=== PATIENT | female | born 1980 | race Caucasian/White ===

== ENCOUNTER → 2017-12-16 09:12 | Outpatient (CLI) | payer OTHER, SELFPAY ==
[2017-12-16 11:25] LABS: Microalbumin,Random Urine < 5.0 mg/L (NO RANGE EST.)
[2017-12-16 11:32] LABS: Hemoglobin A1c 7.1 % (4.2-6.3)
[2017-12-16 11:37] LABS: AST(SGOT) 25 U/L (15-37); Alanine Aminotransfer ALT/SGPT 30 U/L (13-56); Albumin, Serum 3.6 g/dL (3.2-5.0); Alkaline Phosphatase 62 U/L (45-117); Anion Gap 8 (5-15); BUN 8 mg/dL (7-18); BUN/Creat Ratio 10.9 RATIO (10-20); Calcium,Total 8.4 mg/dL (8.5-10.1); Chloride 109 mmol/L (98-107); Cholesterol 159 mg/dL (200); Creatinine, Serum 0.73 mg/dL (0.55-1.02); EST Glomerular Filtration Rate 95 mL/min (>60); Est Glom Filt Rate - Afr Amer 115 mL/min (>60); Follicle Stimulating Hormone 4.1 mIU/mL; Globulin 3.5 g/dL (2.2-4.2); Glucose 90 mg/dL (74-106); High Density Lipoprotein 58 mg/dL; Luteinizing Hormone 4.3 mIU/mL; Protein, Total 7.1 g/dL (6.4-8.2); Sodium Level 142 mmol/L (136-145); Thyroid Stim Hormone (TSH) 2.16 uIU/mL (0.358-3.74); Triglycerides 44 mg/dL; Very Low Density Lipoprotein 9 mg/dL (5-40)
[2017-12-18 16:16] LABS: Estrogen, Total, Serum 331 pg/mL (.)
== END ==
LOC: LAB 09:19
PROVIDERS: Visit Provider Nurse Practitioner
DX: E10.9 Type 1 diabetes mellitus without complications (principal); E89.40 Asymptomatic postprocedural ovarian failure; Z90.710 Acquired absence of both cervix and uterus
CPT/HCPCS: 36415; 80053; 80061; 82043; 82570; 82672; 83001; 83002; 83036; 84443

== ENCOUNTER 2018-03-12 09:58 | Observation (INO) | payer OTHER, SELFPAY ==
[2018-03-12] VITALS (9 sets, daily range): BP systolic 97–125; BP diastolic 60–74; PULSE 65–101; RESP 14–16; TEMP 36.6–36.9; O2SAT 98–100; BMI 29.5
--- NOTE | 2018-03-12 10:31 | CT_ITS ---
STUDY: CT PELVIS WITH CONTRAST REASON FOR EXAM: Female, 37 years old. Perianal abscess. Pain in the left buttock. RADIATION DOSAGE (If Supplied By Facility): CTDIvol = ( 28.21 ) mGy, DLP = ( 1040.96 ) mGycm TECHNIQUE: Transaxial imaging of the pelvis was performed without oral contrast. 100 ml of Isovue 300 contrast was administered intravenously. Individualized dose optimization techniques were used for this CT. COMPARISON: None. FINDINGS: Normal urinary bladder. There is a 2.2 cm x 1.6 cm hypodensity with thickened ziegler along the medial aspect of the left buttock adjacent to the left side of the anus. Mild increased markings in the surrounding subcutaneous tissues. There is a 5 cm x 4 cm x 4.6 cm cyst in the right cul-de-sac suggestive of a right ovarian cyst. The patient is status post hysterectomy. Normal visualized small intestine. Normal visualized colon. There is no pelvic fluid. There is no pelvic lymphadenopathy or mass lesion. Normal visualized pelvic arteries. Normal abdominal wall. Normal osseous structures. CT/Pelvis WITH IV Contrast IMPRESSION: 5 cm x 4 cm x 4.6 m cyst in the right ovary. 2.2 cm x 1.6 cm hypodensity with thickened zeigler along the medial aspect of the left buttock adjacent to the anus. Electronically Signed: Lico Cho MD at 11:32 EDT Tel [phone], Service support ,
[2018-03-12 11:12] LABS: Absolute Lymphocyte Count 1.89 X10^3/ul (0.83-4.51); Absolute Neutrophil Count 7.2 X10^3/uL (2.0-7.7); Basophil# 0.04 X10^3/uL; Basophil% 0.4 % (0-1); Eosinophil# 0.11 X10^3/uL; Eosinophils% 1.1 % (0-5); Hematocrit 37.8 % (37-47); Hemoglobin 12.8 g/dl (12.0-15.0); Lymphocyte # 1.89 X10^3/ul (4.0); Mean Corp Hgb Conc 33.9 g/gl (32-36); Mean Corpuscular Hgb 30.1 pg (27.0-32.0); Mean Corpuscular Volume 88.9 fL (81-99); Mean Platelet Vol. 10.7 fl (6.2-12.0); Monocyte# 0.66 X10^3/uL; Monocyte% 6.6 % (0-10); Neutrophil # 7.24 X10^3/uL (2.7-7.7); Neutrophil % 72.7 % (47-70); Platelet Count 286 K/mm3 (150-450); RBC Distribution Width CV 12.8 % (11.6-14.6); RBC Distribution Width SD 41.6 fl (35.1-43.9); Red Blood Count 4.25 M/mm3 (4.2-5.4)
[2018-03-12 11:13] LABS: Anion Gap 8 (5-15); BUN 9 mg/dL (7-18); BUN/Creat Ratio 11.4 RATIO (10-20); Calcium,Total 8.4 mg/dL (8.5-10.1); Chloride 104 mmol/L (98-107); Creatinine, Serum 0.79 mg/dL (0.55-1.02); EST Glomerular Filtration Rate 88 mL/min (>60); Est Glom Filt Rate - Afr Amer 106 mL/min (>60); Estimated Creatinine Clearance 70.71 ml/min; Glucose 242 mg/dL (74-106); Potassium 3.9 mmol/L (3.5-5.1); Sodium Level 140 mmol/L (136-145)
[2018-03-12 11:16] LABS: Differential Indicated SCAN CRITERIA MET; POSITIVE COUNT NO; POSITIVE DIFFERENTIAL NO; POSITIVE MORPHOLOGY YES
--- NOTE | 2018-03-12 11:16 | EKG12_ITS ---
Test Reason : PRE-OP Blood Pressure : / mmHG Vent. Rate : 074 BPM Atrial Rate : 074 BPM P-R Int : 142 ms QRS Dur : 072 ms QT Int : 398 ms P-R-T Axes : 041 056 032 degrees QTc Int : 441 ms Normal sinus rhythm Normal ECG When compared with ECG of 18-OCT-2015 13:44, No significant change was found Confirmed by GIDEON DOVER, SHANE ([id number]), news videotape editor ANSLEY LEIVA ([id number]) on 03/20/2018 2:45:56 PM Referred By: Marlon Garsia Confirmed By:SHANE MENESES MD
--- NOTE | 2018-03-12 11:23 | PCM.PN.BLA ---
Progress Note Intake Vital Signs 03/12/18 Height 5 ft 03/12/18 Weight: 155 lb 03/12/18 Body Mass Index (BMI) 30.2 03/12/18 Blood Pressure 116/75 03/12/18 Blood Pressure Location Rt brachial 03/12/18 Blood Pressure Position Standing 03/12/18 Respiratory Rate 14 03/12/18 Pulse Rate 74 03/12/18 Pulse Source Monitor 03/12/18 Temperature 98.5 F 03/12/18 Temperature Source Oral 03/12/18 Pulse Ox 99 03/12/18 Oxygen Delivery room air Intake Visit Reasons: Wandy-anal abscess- RC Is patient in pain?: Yes (buttock) Pain scale (1-10): 8 Allergies gabapentin [From Neurontin] Allergy (Verified 03/12/18 09:22) Other Medications insulin lispro (U-100) 100 unit/mL subcutaneous solution See Label Instructions SC QDAY #60 ml 01/15/18 [Rx Confirmed 03/12/18] amoxicillin 875 mg-potassium clavulanate 125 mg tablet 1 tab PO BID 03/12/18 [History Confirmed 03/12/18] flaxseed oil 1,000 mg capsule 1,000 mg PO DAILY 03/12/18 [History Confirmed 03/12/18] lactobacillus combination no.8 3 billion cell capsule 3,000 mmu cells PO DAILY 03/12/18 [History Confirmed 03/12/18] PFSH Medical History Perirectal abscess (Acute) Diabetes type I (Acute) Surgical History Hx of hysterectomy (Acute) r ring a1 jerald release (Acute) History of carpal tunnel surgery (Acute) H/O: (Acute) Family History Father Hypertension Arthritis Grandfather Cancer Arthritis Grandmother Cancer Arthritis Brother Diabetes Social History Smoking Status: Never smoker second hand exposure: No alcohol intake: current alcohol intake frequency: a few times a month substance use type: does not use caffeine: Yes what type of physical activity do you participate in: none frequency: does not exercise seatbelt use: always HPI: TAWNYA HAWTHORNE, is a 37 F who I am seeing for a painful lump on the left buttock. Patient noted a burning sensation of the left buttock last Friday. Patient states she thought it was her pants rubbing against her bottom wrong. Patient notes on Friday the discomfort had increased. Her took a look and did not see any redness or lump. Patient was evaluated by her PCP on last . She was placed on antibiotics which helped over the weekend. She noted the pain was less. On Friday, patient then noted the discomfort returning. She noted the last two days the pain had worsened/increased. She notes the pain is approximately an 8 out of 10 on the pain scale. Patient is unable to lay supine or sit due to the discomfort. She denies fever, nausea, vomiting. She notes normal bowel movements without melena, bright red blood per rectum. She notes slight incontinence with urinary which started yesterday. Patient is a type I diabetic with an insulin pump. Patient noted her blood sugar spiked to 300 last night. Per patient her blood sugar was 120. She notes she has not ate or drank anything today. Patient is requesting to monitor her own insulin pump. She denies previous cardiac history. She denies complications with anesthesia. ROS General General: No weight change, appetite, fatigue, colon cancer, breast cancer or weakness HEENT HEENT: No difficulty swallowing, eye injury, eye surgery, swollen glands or hoarseness Endo Endocrine: Yes diabetes mellitus; no thyroid disease, thyroid cancer, Hair loss, heat intolerance or cold intolerance Skin Skin: No rash or changing moles Musc Musculoskeletal: No back problems, arthritis, rheumatoid arthritis, gout or joint pain Cardio Cardiovascular: No murmur, pacemaker, heart disease, atrial fibrillation, high blood pressure, heart attack, heart stent, palpitations, shortness of breat with exertion or chest pain Psych Psychiatric: No depression, anxiety or hearing voices Resp Respiratory: No shortness of breath, No sleep apnea, No cough, No COPD, No asthma, No emphysema, No wheezing Gastro Gastrointestinal: No abdominal pain, No nausea or vomiting, No diarrhea, No constipation, No blood in stool, No acid reflux, No hemorrhoids, No ulcers, No gallbladder problem, No black,tarry stools Fred Hematologic: No blood thinners, No blood disorders, No bleeding, No anemia, No blood clots Neuro Neurologic: No system reviewed and no additional complaints, except as docu, No as per HPI, No abnormal walking, No abnormal hearing, No abnormal movements, No abnormal speech, No behavioral changes, No burning sensations, No confusion, No seizure-like activity, No unsteadiness, No dizziness, No localized weakness, No frequent falls, No headache(s), No lack of coordination, No loss of vision, No memory loss, No numbness, No other visual disturbances, No radiating pain, No restless legs, No sensory deficit, No fainting, No tingling, No tremor(s), No weakness, No other Exam Const General: cooperative, healthy appearing, no acute distress, other (Uncomfortable with sitting or laying supine) HENMT Head: normal to inspection Eyes General: appearance normal, both eyes and all related structures Neck Neck: normal visual inspection Neck mass: No Resp Effort & Inspection: normal respiratory effort Auscultation: clear to auscultation bilaterally Cardio Rate: regular rate Heart Sounds: no murmurs GI Inspection: normal to inspection Palpation: soft Auscultation: normal bowel sounds Other: Right lateral thigh- diabetic pump noted Left buttock- adjacent to the anus is a 3-4 cm fluctuant region with faint erythema Skin General: no rashes or lesions noted Neuro General: no focal motor deficits, CN's II-XI intact bilaterally Extrem General: normal to inspection Psych Appearance: grossly normal Affect: normal affect Assessment & Plan Problems 1. Perianal abscess K61.[address] Garsia has also evaluated this patient. Due to the patient's history of diabetes, we are recommending direct admission. We will obtain CBC, BMP, blood cultures and STAT pelvic CT. Dr. Garsia will plan to perform an incision and drainage or wandy-anal abscess. Patient prefers to monitor her own insulin pump. Procedure details, risks and benefits have been explained. Patient has had the opportunity to ask and have questions answered. Patient verbally understands and agrees with the plan. Continue NPO. Code Visit Inpatient E&M: 37864 Subs Hosp L1 - No Charge
[2018-03-12 11:48] LABS: Hemoglobin A1c 7.6 % (4.2-6.3)
[2018-03-12] MEDS: 0.9% Normal Saline 1,000 ML 30 ML IV (13:32)
[2018-03-12] MEDS: Piperacil/Tazobactam 3.375 GM/50 ML ML IV ×2 (13:32→21:25)
--- NOTE | 2018-03-12 15:44 | PCM.DC.GS ---
Discharge Diet: Light diet - advance as tolerated - if you have questions about your diet instructions, please talk to you doctor. Discharge Activity: May Not Drive - for 1 week or while taking narcotic pain medicine. May shower in (days): 1 Lifting Restrictions: 10 pounds Call your doctor if your incision/area has: Continuous Slow Oozing, Sudden Increased Bleeding, Increased Pain/ Swelling, Increased Redness, Foul Smelling Discharge Call your doctor if you observe: Fever of 101 or Higher Suture Line Care: Avoid Pulling/Pushing, Avoid Pinching/Bending Additional Dressing/Incision Instructions:: Please remove the gauze wick 2 inch daily and cleanse area with Q-tip and peroxide. You may shower or tub bathe starting tomorrow Friday, March 13. Careful wound inspection after any bowel movement. Apply dry gauze or similar for wound drainage. Allergies/Adverse Reactions: Allergies gabapentin [From Neurontin] Allergy (Verified 03/12/18 09:22) Other Medications to take at Discharge insulin lispro (U-100) 100 unit/mL subcutaneous solution See Label Instructions SC QDAY #60 ml 01/15/18 Amoxicillin/Potassium Clav [Amox-Clav 875-125 mg Tablet] 1 tab PO BID #6 tab 03/12/18 Hydrocodone Bitart/Apap 5-325 [[place] 5MG-325MG] 1 tablet PO Q6H PRN PRN 3 Days #10 tablet 03/12/18 Magnesium Hydroxide [Milk Of Magnesia] 30 ml PO DAILY PRN PRN udc 03/12/18 Ondansetron [Zofran] 4 mg IV Q8H PRN PRN vial 03/12/18 Piperacil/Tazobactam [Zosyn] 3.375 gm IV Q8 ml 03/12/18 flaxseed oil 1,000 mg capsule 1,000 mg PO DAILY 03/12/18 lactobacillus combination no.8 3 billion cell capsule 3,000 mmu cells PO DAILY 03/12/18 The following prescriptions were given: Hydrocodone Bitart/Apap 5-325 [[place] 5MG-325MG] 1 tablet PO Q6H PRN PRN 3 Days #10 tablet PRN Reason: Pain Amoxicillin/Potassium Clav [Amox-Clav 875-125 mg Tablet] 1 tab PO BID #6 tab Primary Care Physician: Meenu Chua [Primary Care Provider] - Test Results: Test results from this visit will be discussed in further detail at your follow-up appointment, if applicable. Please Follow Up With: Marlon Garsia MD - [phone] When: Call to make an appointment to be seen on Friday please
[2018-03-12] MEDS: Bupivacaine Mpf 0.5% 30 ML VIAL (16:13)
--- NOTE | 2018-03-12 16:14 | PCM.OPRPT ---
Problem List (1) Perianal abscess Status: Acute Report of Operation Date of Procedure: 03/12/18 Pre-Operative Diagnosis: Left perianal abscess Post-Operative Diagnosis: Same Surgery/Procedure Performed:: Incision and drainage left perianal abscess Description of Surgical Findings:: Timeout and informed consent was obtained. 37-year-old female on the therapeutic Zosyn was taken to the operating room. CT scan suggested a left perianal abscess. She underwent general ventricular-based anesthesia. She was placed prone on the table. The left perianal area was sterilely prepped draped. I used an 18-gauge needle to drain 4 cc of pus. That is sent for Gram stain culture and sensitivity. A 3 cm long incision was made left lateral curvilinear with the anus. Sharp dissection again carried down through the subcutaneous tissue into the abscess pocket. Several loculations disrupted. The pocket was then irrigated. 1/2 inch Nu Gauze wick was placed as a drain. Cover dressings were applied. She tolerated the procedure well. Blood loss was minimal. Specimen only includes specimen for culture. Drains include the Nu Gauze. Marlon Garsia M.D., F.A.C.S. Type of Anesthesia:: General Anesthesiologist: Jose Carlos Womack
[2018-03-12 16:45] LABS: Bedside Glucose 94 mg/dL (70-110)
[2018-03-12] MEDS: Acetaminophen 325 MG Tablet 650 MG PO (17:55)
--- NOTE | 2018-03-12 21:41 | NURSING ---
Patient checked sugar with own equipment @ 1900. BS 162. She used 7.5u on her own pump to cover. Pt will recheck blood sugar prior to bed. Instructed to let staff know reading.
--- NOTE | 2018-03-13 | NURSING ---
Pt took QHS blood sugar with own equipment. Blood sugar 82.
[2018-03-13] MEDS: HYDROcodone Bitartrate/Apap 5/325 Tablet PO ×2 (02:46→09:18)
[2018-03-13 02:53] VITALS: BP 95/54; PULSE 86; RESP 16; TEMP 37.3; O2SAT 98
[2018-03-13] MEDS: Piperacil/Tazobactam 3.375 GM/50 ML ML IV (05:10)
--- NOTE | 2018-03-13 06:05 | PN.SURG_ITS ---
Patient Problems: Active and Suspected Problems (Last Reviewed 03/12/18 @ 09:24 by Tamela Keane) Perianal abscess (Acute) Subjective: Pt feeling improved - Physical Exam Abdomen: - - left perianal area softer, less erythema Vital Signs Temp Pulse Resp BP Pulse Ox 99.1 F 86 16 95/54 L 98 03/13/18 02:53 03/13/18 02:53 03/13/18 02:53 03/13/18 02:53 03/13/18 02:53 Oxygen Delivery Method Room Air Weight: 151 lb 0.266 oz Body Mass Index (BMI) 29.5 Finger Stick Blood Glucose 94 Intake and Output for Last 24 Hours 03/11/18 03/12/18 03/13/18 23:59 23:59 23:59 Intake Total 816 / 816 2730 / 2730 Output Total 1000 / 1000 Balance 816 / 816 1730 / 1730 Laboratory Tests Past 24 Hrs 03/12/18 03/12/18 03/12/18 10:40 10:40 11:20 WBC 10.0 RBC 4.25 Hgb 12.8 Hct 37.8 MCV 88.9 MCH 30.1 MCHC 33.9 RDW 12.8 RDW Differential 41.6 Plt Count 286 MPV 10.7 Immature Gran % (Auto) 0.200 Neut % (Auto) 72.7 H Lymph % (Auto) 19.0 [place] % (Auto) 6.6 Eos % (Auto) 1.1 Baso % (Auto) 0.4 Absolute Neuts (auto) 7.2 Absolute Lymphs (auto) 1.89 Total Counted Not Reportable Sodium 140 Potassium 3.9 Chloride 104 Carbon Dioxide 28.0 Anion Gap 8 BUN 9 Creatinine 0.79 Estim Creat Clear Calc 70.71 Est GFR (MDRD) Af Amer 106 Est GFR (MDRD) Non-Af 88 BUN/Creatinine Ratio 11.4 Glucose 242 H Hemoglobin A1c 7.6 H Calcium 8.4 L POC Glucose 03/12/18 16:37 POC Glucose 94 Medical Necessity - Tobacco Use Smoking Status: Never smoker Assessment/Plan All Active Problems (Last Reviewed 03/12/18 @ 09:24 by Tamela Keane) Perianal abscess (Acute) Perirectal abscess (Acute) Hx of hysterectomy (Acute) r ring a1 jerald release (Acute) History of carpal tunnel surgery (Acute) H/O: (Acute) Diabetes type I (Acute) Wick advanced. Redressed. Ready for discharge when current zosyn complete
[2018-03-13 09:21] VITALS: BP 95/62; PULSE 73; RESP 16; TEMP 36.7; O2SAT 100
== END 2018-03-13 09:25 | disposition home or self-care (01) ==
PROVIDERS: Anesthesiology; Physician Assistant; Admitting Provider Surgery; Family Provider Family Medicine; PCP Family Medicine; Visit Provider Surgery
PROC: (CPT 46040; principal; 2018-03-12 07:15)
DX: K61.1 Rectal abscess (principal); E10.9 Type 1 diabetes mellitus without complications; Z79.899 Other long term (current) drug therapy; Z79.4 Long term (current) use of insulin; Z96.41 Presence of insulin pump (external) (internal); R32 Unspecified urinary incontinence
CPT/HCPCS: 00902; 46050; 36415; 72193; 80048; 82962; 83036; 85025; 87040; 87070; 87075; 87077; 87186; 87205; 93005; 96365; 96366; 99218; J7030; J7040; Q9967; A4216; G0378; G0379; J2405

== ENCOUNTER 2019-02-02 11:34 | Emergency (ER) | payer OTHER, SELFPAY ==
[2019-02-02 11:35] VITALS: BP 134/78; PULSE 79; RESP 16; TEMP 36.4; O2SAT 100; BMI 29.2
[2019-02-02 11:56] LABS: Bedside Glucose 127 mg/dL (70-110)
--- NOTE | 2019-02-02 12:15 | EKG12_ITS ---
Test Reason : DIZZINESS Blood Pressure : / mmHG Vent. Rate : 071 BPM Atrial Rate : 071 BPM P-R Int : 138 ms QRS Dur : 072 ms QT Int : 394 ms P-R-T Axes : 032 053 026 degrees QTc Int : 428 ms Normal sinus rhythm Normal ECG Confirmed by PETRONA GUZMAN ([id number]), editor book ZAIRE PEDROZA ([id number]) on 02/04/2019 2:31:18 PM Referred By: ARMANDO Confirmed By:PETRONA GUZMAN
[2019-02-02] MEDS: 0.9% Normal Saline 1,000 ML 1000 ML IV (12:31)
[2019-02-02 12:42] LABS: Absolute Lymphocyte Count 1.73 X10^3/uL (0.83-4.51); Basophil# 0.08 X10^3/uL; Basophil% 0.8 % (0-1); Eosinophil# 0.06 X10^3/uL; Eosinophils% 0.6 % (0-5); Hematocrit 42.7 % (37-47); Hemoglobin 14.5 g/dL (12.0-15.0); Lymphocyte # 1.73 X10^3/ul (4.0); Lymphocyte % 18.1 % (19-41); Mean Corpuscular Hgb 30.9 pg (27.0-32.0); Mean Platelet Vol. 11.5 fl (6.2-12.0); Monocyte# 0.59 X10^3/uL; Monocyte% 6.2 % (0-10); NRBC Flagged by Analyzer 0 % (0-5); Neutrophil # 7.04 X10^3/uL (2.7-7.7); Neutrophil % 73.9 % (47-70); Platelet Count 220 K/mm3 (150-450); RBC Distribution Width CV 12.3 % (11.6-14.6); RBC Distribution Width SD 40.6 fl (35.1-43.9); Red Blood Count 4.69 M/mm3 (4.2-5.4); White Blood Count 9.5 K/mm3 (4.4-11.0)
[2019-02-02 12:48] LABS: AST(SGOT) 16 U/L (15-37); Alanine Aminotransfer ALT/SGPT 26 U/L (13-56); Albumin, Serum 3.8 g/dL (3.2-5.0); Alkaline Phosphatase 74 U/L (45-117); Anion Gap 3 (5-15); BUN 11 mg/dL (7-18); BUN/Creat Ratio 13.1 RATIO (10-20); Bilirubin, Direct 0.13 mg/dL (0.00-0.30); Calcium,Total 8.7 mg/dL (8.5-10.1); Chloride 106 mmol/L (98-107); Creatinine, Serum 0.84 mg/dL (0.55-1.02); EST Glomerular Filtration Rate 81 mL/min (>60); Est Glom Filt Rate - Afr Amer 98 mL/min (>60); Estimated Creatinine Clearance 65.87 ml/min; Globulin 3.7 g/dL (2.2-4.2); Glucose 131 mg/dL (74-106); Protein, Total 7.5 g/dL (6.4-8.2); Sodium Level 139 mmol/L (136-145)
[2019-02-02 13:02] VITALS: BP 110/71; BP 117/73; BP 129/81; PULSE 72; PULSE 77; PULSE 78
[2019-02-02 13:51] VITALS: BP 106/59; PULSE 88; RESP 16; O2SAT 97
--- NOTE | 2019-02-02 14:58 | ED.RN ---
URINE COLLECTION CANCELLED VERBALLY BY DR LARIOS AFTER VISUALIZING URINE SPECIMEN IN CUP.
--- NOTE | 2019-02-02 15:01 | ED.DCSUM_ITS ---
- ER Visit Summary Date of Service: 02/02/19 Chief Complaint: Dizziness and elevated blood sugar History of Present Illness: The patient is a 38 F history of type 1 insulin- dependent diabetes with insulin pump. Patient states she just felt she got up this morning lightheaded dizzy. Denies any headache. No trouble moving arms or legs. Elevated blood sugar at 320 early today. States she is lying down and some mild abdominal crampiness but denies any vomiting, diarrhea or melena. She is had no recent head injury. No chest pain or shortness of breath. No fever. No dysuria. Physical Examination: Female no acute distress. Vital signs are stable. Afebrile. She does not look septic or toxic. HEENT exam normal. Moist wheeze members. No facial droop. Normal speech. Pupils are unreactive light. Neck nontender. Lungs clear to auscultation bilaterally. Heart regular rhythm no murmur. Abdomen is soft and nontender. Normal bowel sounds no peritoneal signs. Extremities moves all 4. Calves nontender no edema. Equal symmetrical health concierge strength. Dorsi plantarflexion intact. Skin unremarkable. Neurologically she is awake and alert with no focal motor or sensory deficits. NIH score is 0. Test Results: CBC normal white count of 9. Hemoglobin 14. Chemistries normal normal BUN and creatinine. Glucose of 131. Liver enzymes normal. UA was initially ordered she did not urinate for a while I evaluated it is completely clear I am canceling the UA. She is had no urinary symptoms. Ketones are negative. EKG sinus rhythm rate is 71 with no acute signs of CT, ischemia or dysrhythmia. Emergency Department Course and Treatment: Diabetic female feeling lightheaded. Exam is normal. She is not in DKA. She received a liter of fluid here. Gave her self insulin to her insulin pump. On repeat exam at 1500 she is doing well. Feels comfortable being discharged home. Treatment Plan: Monitor blood sugars closely. Follow-up as needed. Return if worse. Disposition: Discharge Impression: Transient hyperglycemia Dizziness of uncertain etiology History of insulin-dependent diabetes This note was generated with [employer] dictation software. It may contain incorrect words, spelling, and punctuation that were not noted in review of the chart prior to signing ED Disposition - Plan for ED Patient: Referrals: Meenu Chua [Primary Care Provider] -
--- NOTE | 2019-02-02 15:05 | ED.DEP ---
ED Disposition - Plan for ED Patient: Disposition: Home or Assisted Living Instructions: DIZZINESS, Unk Cause Referrals: Meenu Chua [Primary Care Provider] - 3-5 Days if not improving Additional Instructions: Friday fluids and rest. Watch your blood sugars closely. Up with your doctor if not improving.
== END 2019-02-02 15:14 | disposition home or self-care (01) ==
PROVIDERS: Emergency Provider Emergency Medicine; Family Provider Family Medicine; PCP Family Medicine
DX: E10.65 Type 1 diabetes mellitus with hyperglycemia (principal); R42 Dizziness and giddiness; Z79.4 Long term (current) use of insulin
CPT/HCPCS: 80048; 80076; 82009; 82962; 85025; 93005; 96360; 96361; 99285; J7030; A4216

== ENCOUNTER → 2019-11-29 | Outpatient (CLI) | payer MEDICAID, SELFPAY ==
[2019-11-29 13:14] VITALS: BMI 29.4
[2019-11-29 15:33] LABS: AST(SGOT) 27 U/L (15-37); Alanine Aminotransfer ALT/SGPT 45 U/L (13-56); Albumin, Serum 3.8 g/dL (3.2-5.0); Alkaline Phosphatase 83 U/L (45-117); BUN 11 mg/dL (7-18); BUN/Creat Ratio 12.9 RATIO (10-20); Calcium,Total 9.2 mg/dL (8.5-10.1); Cholesterol 218 mg/dL (200); Creatinine, Serum 0.85 mg/dL (0.55-1.02); EST Glomerular Filtration Rate 79 mL/min (>60); Est Glom Filt Rate - Afr Amer 96 mL/min (>60); Globulin 3.9 g/dL (2.2-4.2); Glucose 113 mg/dL (74-106); Protein, Total 7.7 g/dL (6.4-8.2); Triglycerides 44 mg/dL
[2019-11-29 15:34] LABS: Anion Gap 5 (5-15); Chloride 108 mmol/L (98-107); Follicle Stimulating Hormone 2.3 mIU/mL; High Density Lipoprotein 86 mg/dL; Sodium Level 141 mmol/L (136-145); T4 Free Direct 0.87 ng/dL (0.76-1.46); Thyroid Stim Hormone (TSH) 3.02 uIU/mL (0.358-3.74); Very Low Density Lipoprotein 9 mg/dL (5-40)
[2019-11-29 17:36] LABS: Creatinine, Urine (random) < 13.00 mg/dL (NO RANGE EST.); Microalbumin,Random Urine < 5.0 mg/L (NO RANGE EST.)
== END | disposition home or self-care (01) ==
LOC: BIMLAB 13:47
PROVIDERS: Internal Medicine Endocrinology, Diabetes & Metabolism; PCP Family Medicine
DX: E10.9 Type 1 diabetes mellitus without complications (principal); N91.2 Amenorrhea, unspecified
CPT/HCPCS: 36415; 80053; 80061; 82043; 82570; 83001; 84439; 84443

== ENCOUNTER 2020-08-18 20:57 | Emergency (ER) | payer MEDICAID, SELFPAY ==
[2020-07-17 16:29] VITALS: BMI 30.7
[2020-08-18 20:58] VITALS: BP 140/95; PULSE 72; RESP 16; TEMP 36.6; O2SAT 100; BMI 33.3
--- NOTE | 2020-08-18 21:08 | CT_ITS ---
STUDY: CT ABDOMEN AND PELVIS WITHOUT CONTRAST REASON FOR EXAM: Female, 40 years old. Kidney Stone RADIATION DOSAGE (If Supplied By Facility): CTDIvol = ( 7.80 ) mGy, DLP = ( 370.11 ) mGycm TECHNIQUE: Transaxial images were obtained from the dome of the diaphragm to the symphysis pubis without oral contrast, and without intravenous contrast. Sagittal and coronal images were reconstructed. Individualized dose optimization techniques were used for this CT. COMPARISON: None. FINDINGS: Lung bases are clear. Heart size is normal. The liver is unremarkable. The gallbladder is unremarkable. The spleen and pancreas are unremarkable. The adrenal glands are normal. Trace right hydronephrosis. Mild left hydronephrosis. No renal calculi. Ureters are normal in course and caliber. No ureteral stones. The aorta is normal in caliber. There is no free fluid, free air or organized collection. No bowel obstruction or inflammatory change. Normal appendix. Urinary bladder is unremarkable. Normal abdominal wall. Normal osseous structures. CT/Abdomen/Pelvis without Cont IMPRESSION: Mild bilateral hydronephrosis with no evidence of obstructing stone. Consider small, nonopaque or passed stones. Electronically Signed: Adrianna Boles MD at 21:56 EST Tel , Service support ,
--- NOTE | 2020-08-18 21:09 | ED.DCSUM_ITS ---
History of Present Illness Chief Complaint: Flank Pain Informant: Patient Onset: Days - 3 days ago Context: Sudden Onset Timing: Continuous - Pain, Waxes and wanes Quality: Pain Location: Right flank radiating to groin Current Severity: Moderate Maximum Severity: Severe Worsened by: Nothing Relieved by: Nothing Associated Symptoms: Initially urgency Narrative: Is a 40-year-old type I diabetic since the age of 13 who presents with abrupt onset of right flank pain that radiates anteriorly. Initially she had urgency. She denies dysuria or hematuria. She states she has not been in the emergency department for years for kidney stone. She is status post hysterectomy. She denies fever but reported chills when she felt nauseous. She has not vomited. She denies diarrhea. There is no history of trauma. There is no rash. Prior similar symptoms: Yes Recent Illness/Hospitalization: No - Past Medical History (1) Diabetes type I Status: Acute Comment: Dx : age 13 Last exacerbation : DKA : never Hypoglycemic episode : never ER visit : never (2) Presence of insulin pump Status: Chronic Past Medical History - Allergies and Home Meds Allergies/Adverse Reactions: Allergies gabapentin [From Neurontin] Allergy (Verified 08/18/20 21:00) Other Primary Care Physician: Meenu Chua MD [Primary Care Provider] - Surgical History: hysterectomy Lives: Alone Smoking Status: Never smoker Alcohol: None Drugs: None Review of Systems General: Reports: Chills. Denies: Fever, Malaise, Subjective Eyes: Denies: Visual changes - bilaterally ENT: Denies: Rhinorrhea, Sore throat Cardiovascular: Denies: Chest pain, Palpitations Respiratory: Denies: Dyspnea, Cough, Dyspnea on exertion Gastrointestinal: Reports: Abdominal pain, Nausea. Denies: Vomiting, Diarrhea, Melena, Hematochezia Genitourinary: Reports: - - Initially urgency. Denies: Dysuria, Hematuria, Frequency Musculoskeletal: Reports: Back pain. Denies: Myalgias, Arthralgias, Neck pain, Swelling, Extremity Pain, -, - Skin: Denies: Rash, Wounds Neurological: Denies: Headache, Weakness Endocrine: Denies: Polyuria, Polydipsia Hematologic: Denies: Easy bruising, Easy bleeding Physical Exam Vital Signs/Narrative: Vital Signs Temp Pulse Resp BP Pulse Ox 08/18/20 20:58 98 F 72 16 140/95 H 100 Inital Vital Signs reviewed: Yes General: Well nourished, Well developed, Obese, No Acute Distress Head: Normocephalic, Atraumatic Eyes: Perrl, EOMI ENT: Moist mucous membranes, No rhinorrhea Neck: Supple, Nontender, No lymphadenopathy, No JVD Cardiovascular: Regular rate, Regular rhythm, No murmurs, Normal S1, Normal S2 Respiratory: No distress, CTA bilaterally, Chest nontender Abdomen: Soft, Nontender, Nondistended, Normal bowel sounds Back: Nontender, Normal Inspection, CVA tenderness - Right side only Extremities: Nontender, No edema Skin: Normal color, No rash Neurological: Alert, Oriented x3, Cranial nerves II-XII grossly intact, Normal Strength, Normal Sensation Psychological: Normal affect, Normal Mood Diagnostic/Tx/Re-eval Impressions Abdomen/Pelvis CT 08/18/20 21:08 IMPRESSION: Mild bilateral hydronephrosis with no evidence of obstructing stone. Consider small, nonopaque or passed stones. Electronically Signed: Adrianna Boles MD at 21:56 EST Tel , Service support , 08/18/20 21:08 Abdomen/Pelvis without Cont [CT] Stat Laboratory Results 08/18/20 08/18/20 08/18/20 21:05 21:20 21:20 WBC 10.5 RBC 4.75 Hgb 14.1 Hct 42.3 MCV 89.1 MCH 29.7 MCHC 33.3 RDW Std Deviation 40.1 RDW Coeff of Patricia 12.3 Plt Count 260 MPV 10.9 Immature Gran % (Auto) 0.400 Neut % (Auto) 59.9 Lymph % (Auto) 30.7 [place] % (Auto) 7.2 Eos % (Auto) 1.1 Baso % (Auto) 0.7 Absolute Neuts (auto) 6.3 Absolute Lymphs (auto) 3.24 Nucleated RBC % 0 Sodium 138 Potassium 3.4 L Chloride 103 Carbon Dioxide 30.0 Anion Gap 5 BUN 15 Creatinine 0.99 Estim Creat Clear Calc 54.80 Est GFR (MDRD) Af Amer 80 Est GFR (MDRD) Non-Af 66 BUN/Creatinine Ratio 15.2 Glucose 180 H Calcium 8.6 Urine Color Yellow Urine Clarity Clear Urine pH 6.5 Ur Specific [place] 1.010 Urine Protein Negative Urine Glucose (UA) Normal Urine Ketones Negative Urine Occult Blood Negative Urine Nitrite Negative Urine Bilirubin Negative Urine Urobilinogen Normal Ur Leukocyte Esterase 100 H Urine RBC 0 SEEN Urine WBC 0 SEEN Ur Squamous Epith Cells 0 SEEN Urine Bacteria 1+ Urine Mucus 0 SEEN - Medical Decision Making Patient reports elevated blood sugar. Will obtain basic metabolic panel to assess blood sugar as well as anion gap and renal function. CBC to rule out white count and anemia. UA to rule out infection. CT of the abdomen and pelvis without contrast (see kidney stone protocol) to evaluate her flank pain and determine if she has an obstructing stone. She was medicated with Zofran and morphine. Since she has type 1 diabetes for 27 years she was not treated with Toradol. Urine does reveal 1+ bacteria and leukoesterase. Culture was sent. Patient received a dose of Rocephin. CT of the abdomen pelvis noncontrast reveals no obvious hydronephrosis, hydroureter or ureteral stone. Awaiting formal read by radiologist. There is reported mild bilateral hydronephrosis per radiologist. There is no evidence of obstructing ureteral stone. Plan is to discharge with pain medicine, antibiotics and follow-up with Dr. Jackson ED Disposition - Plan for ED Patient: Disposition: Home or Assisted Living Diagnosis: Pyelonephritis, Bilateral hydronephrosis, Bacteriuria, Hyperglycemia due to type 1 diabetes mellitus Instructions: ED Pyelonephritis, Female (Adult) Prescriptions: Ciprofloxacin [Cipro] 500 mg PO BID #14 tab Prescription Printed Hydrocodone Bitart/Apap 5-325 [[place] 5MG-325MG] 1 tab PO Q6H PRN PRN 3 Days #10 tab PRN Reason: Pain Prescription Printed Referrals: Meenu Chua MD [Primary Care Provider] - Jl Magallon MD [STAFF PHYSICIAN] - 5-7 Days
[2020-08-18 21:13] LABS: Mucous, Urine 0 SEEN /hpf (<or=2+); Red Blood Cells-Urine 0 SEEN /hpf (0-5); Squamous Epithelial Cells - UA 0 SEEN /hpf (5-10); White Blood Cells 0 SEEN /hpf (0-5)
[2020-08-18 21:20] LABS: Color, Urine Yellow (Yellow); Glucose, Dipstick Normal (Normal); Ketone-Dipstick Negative (Negative); Leukocyte Esterase-Dipstick 100 /ul (Negative); Nitrite-Dipstick Negative (Negative); Occult Blood-Urine Negative /ul (Negative); Protein-Dipstick Negative (Negative); Urine Bilirubin Dipstick Negative (Negative); Urine Clarity Clear (Clear); Urine Urobilinogen Normal (Normal); Urine pH 6.5 (5.0 - 8.0)
[2020-08-18] MEDS: Ondansetron 4 MG/2 ML Vial IV (21:24)
[2020-08-18] MEDS: Morphine 4 MG/ML Syringe IV (21:24)
[2020-08-18 21:26] LABS: Bacteria 1+ /hpf (None Seen)
[2020-08-18 21:31] LABS: Absolute Lymphocyte Count 3.24 X10^3/uL (0.83-4.51); Absolute Neutrophil Count 6.3 X10^3/uL (2.0-7.7); Basophil# 0.07 X10^3/uL; Basophil% 0.7 % (0-1); Eosinophil# 0.12 X10^3/uL; Eosinophils% 1.1 % (0-5); Hematocrit 42.3 % (37-47); Hemoglobin 14.1 g/dL (12.0-15.0); Lymphocyte # 3.24 X10^3/ul (4.0); Lymphocyte % 30.7 % (19-41); Mean Corp Hgb Conc 33.3 g/dL (32-36); Mean Corpuscular Hgb 29.7 pg (27.0-32.0); Mean Corpuscular Volume 89.1 fL (81-99); Mean Platelet Vol. 10.9 fl (6.2-12.0); Monocyte# 0.76 X10^3/uL; Monocyte% 7.2 % (0-10); NRBC Flagged by Analyzer 0 % (0-5); Neutrophil # 6.31 X10^3/uL (2.7-7.7); Neutrophil % 59.9 % (47-70); Platelet Count 260 K/mm3 (150-450); RBC Distribution Width CV 12.3 % (11.6-14.6); RBC Distribution Width SD 40.1 fl (35.1-43.9); Red Blood Count 4.75 M/mm3 (4.2-5.4); White Blood Count 10.5 K/mm3 (4.4-11.0)
[2020-08-18] MEDS: 0.9% Normal Saline 1,000 ML 250 ML IV (21:43)
[2020-08-18] MEDS: Ceftriaxone 1 GM/50 ML BAG IV (21:43)
[2020-08-18 21:49] LABS: Anion Gap 5 (5-15); BUN 15 mg/dL (7-18); BUN/Creat Ratio 15.2 RATIO (10-20); Calcium,Total 8.6 mg/dL (8.5-10.1); Chloride 103 mmol/L (98-107); Creatinine, Serum 0.99 mg/dL (0.55-1.02); EST Glomerular Filtration Rate 66 mL/min (>60); Est Glom Filt Rate - Afr Amer 80 mL/min (>60); Glucose 180 mg/dL (74-106); Potassium 3.4 mmol/L (3.5-5.1); Sodium Level 138 mmol/L (136-145)
== END 2020-08-18 22:40 | disposition home or self-care (01) ==
PROVIDERS: Emergency Provider Emergency Medicine; PCP Family Medicine
DX: N13.6 Pyonephrosis (principal); E10.65 Type 1 diabetes mellitus with hyperglycemia; E66.9 Obesity, unspecified; Z79.4 Long term (current) use of insulin; Z79.899 Other long term (current) drug therapy; Z96.41 Presence of insulin pump (external) (internal); Z90.710 Acquired absence of both cervix and uterus
CPT/HCPCS: 74176; 80048; 81001; 85025; 87086; 87088; 96365; 96375; 99283; J7030; J2405

== ENCOUNTER → 2020-09-11 16:56 | Outpatient (CLI) | payer MEDICAID, SELFPAY ==
[2020-08-18 20:58] VITALS: BMI 33.3
--- NOTE | 2020-09-11 16:58 | CT_ITS ---
STUDY: CT ABDOMEN AND PELVIS WITH AND WITHOUT CONTRAST REASON FOR EXAM: Female, 40 years old. Lower back pain. Hydronephrosis. UTI. RADIATION DOSAGE (If Supplied By Facility): CTDIvol = ( 12.51 ) mGy, DLP = ( 1879.58 ) mGycm TECHNIQUE: Axial CT images of the abdomen and pelvis were obtained with and without IV contrast administration. Multiplanar reconstructions. The protocol utilizes one or more of the following dose reduction techniques: automated exposure control, adjustment of mA and/or kV according to patient size, and/or use of iterative reconstruction technique. Individualized dose optimization techniques were used for this CT. COMPARISON: 08/18/2020. FINDINGS: Lower Chest Lungs: Normal. Heart: Normal. Ribs: Normal. Organs / Endocrine Liver: Normal. Gallbladder / Biliary Tree: Normal. Pancreas: Normal. Spleen: Normal. Adrenal Glands: Normal. Peritoneum Fluid Collections: None. Free Air: None. Intestinal Tract Stomach: Normal. Small Intestine: Normal. Appendix: Normal. Colon: Question sigmoid diverticuli without acute inflammatory change. The colon is otherwise normal. Urinary System Kidney (right): Extrarenal pelvis. There is no hydronephrosis or mass. Kidney (left): Extrarenal pelvis. There is no hydronephrosis or mass. Ureter (right): Normal. Ureter (left): Normal. Bladder: Normal. Reproductive Organs Status post hysterectomy. Unremarkable vaginal cuff ,. Vessels Aorta: Normal. Inferior Vena Cava: Mild prominence of the IVC. Iliac Arteries: Normal. Lymph Nodes Retroperitoneal: Normal. Iliac / Inguinal: Normal. Mesenteric: Non-visualized. Bones Vertebrae: Normal. Pelvis / Sacrum: Normal. Abdominal Wall / Inguinal Region Defect: None. Hernia: None. CT/CT Abd/Pelvis W/WO Contrast IMPRESSION: 1. Bilateral extrarenal pelvis sees. There is no other evidence of renal, ureteral or urinary bladder abnormality. 2. Otherwise normal CT of the abdomen and pelvis. Electronically Signed: Deacon Tyson DO at 22:34 EDT Tel [phone], Service support ,
== END ==
PROVIDERS: Referring Provider Urology; Visit Provider Urology
DX: N39.0 Urinary tract infection, site not specified (principal); M54.5 Low back pain; N13.30 Unspecified hydronephrosis
CPT/HCPCS: 74178; Q9967

== ENCOUNTER 2021-08-20 15:39 | Outpatient (CLI) | payer BC, SELFPAY ==
[2021-08-20 15:56] LABS: Mucous, Urine 0 SEEN /hpf (<or=2+); Red Blood Cells-Urine 0 SEEN /hpf (0-5); White Blood Cells 0 SEEN /hpf (0-5)
[2021-08-20 16:38] LABS: Color, Urine Yellow (Yellow); Glucose, Dipstick Normal (Normal); Ketone-Dipstick Negative (Negative); Leukocyte Esterase-Dipstick 25 /ul (Negative); Nitrite-Dipstick Negative (Negative); Occult Blood-Urine Negative /ul (Negative); Protein-Dipstick Negative (Negative); Urine Bilirubin Dipstick Negative (Negative); Urine Clarity Clear (Clear); Urine Urobilinogen Normal (Normal)
[2021-08-20 16:51] LABS: Vitamin D,25 Hydroxy 23.3 ng/mL
[2021-08-20 17:03] LABS: Bacteria RARE /hpf (None Seen); Squamous Epithelial Cells - UA 0-5 SEEN /hpf (5-10)
[2021-08-20 17:28] LABS: ALB/GLOB Ratio 0.9 RATIO (0.9-2.4); AST(SGOT) 24 U/L (15-37); Alanine Aminotransfer ALT/SGPT 42 U/L (13-56); Albumin, Serum 3.6 g/dL (3.2-5.0); Alkaline Phosphatase 96 U/L (45-117); Anion Gap 6 (5-15); BUN 13 mg/dL (7-18); Calcium,Total 8.9 mg/dL (8.5-10.1); Chloride 103 mmol/L (98-107); Cholesterol 200 mg/dL (200); Creatinine, Serum 0.82 mg/dL (0.55-1.02); EST Glomerular Filtration Rate 83 mL/min (>60); Est Glom Filt Rate - Afr Amer 100 mL/min (>60); Glucose 177 mg/dL (74-106); High Density Lipoprotein 74 mg/dL; Potassium 3.8 mmol/L (3.5-5.1); Protein, Total 7.6 g/dL (6.4-8.2); Sodium Level 137 mmol/L (136-145); Thyroid Stim Hormone (TSH) 2.56 uIU/mL (0.358-3.74); Triglycerides 82 mg/dL; Very Low Density Lipoprotein 16 mg/dL (5-40)
[2021-08-20 17:59] LABS: Microalbumin,Random Urine < 5.0 mg/L (NO RANGE EST.)
== END 2021-08-20 23:59 | disposition home or self-care (01) ==
LOC: BIMLAB 15:40
PROVIDERS: Visit Provider Internal Medicine Endocrinology, Diabetes & Metabolism
DX: E10.9 Type 1 diabetes mellitus without complications (principal); Z96.41 Presence of insulin pump (external) (internal); R10.9 Unspecified abdominal pain; E55.9 Vitamin D deficiency, unspecified
CPT/HCPCS: 36415; 80053; 80061; 81001; 82043; 82306; 82570; 84443

== ENCOUNTER → 2022-04-24 | Outpatient (CLI) | payer BC, SELFPAY ==
--- NOTE | 2022-04-24 15:04 | NEURO ---
NCS and/or EMG Patient Report Ordering Doctor: Mj Lira DATE OF SERVICE: 04/24/22 Bonnie presents for electrodiagnostic testing of the upper limbs. She reports numbness and tingling in both hands. She has a history of carpal tunnel release approximately 23 years ago. Electrodiagnostic findings: Right median motor nerve demonstrates prolonged distal latency with normal amplitude and reduced conduction velocity. Left median motor response is within normal limits. Normal ulnar motor response bilaterally. Prolonged right median and left median sensory latency at the wrist. Normal ulnar and radial sensory responses. Normal median and ulnar F waves. On needle EMG, all muscles tested in the upper limbs showed no evidence of denervation with normal motor unit action potentials. Electrodiagnostic impression: This is an abnormal study in upper limbs 1. Electrodiagnostic findings suggestive of bilateral median mononeuropathy. This is consistent with a moderate right carpal tunnel syndrome and a mild left carpal tunnel syndrome. 2. No electrodiagnostic evidence is noted for cervical radiculopathy.
== END | disposition home or self-care (01) ==
LOC: PSN 10:27
PROVIDERS: Referring Provider Internal Medicine Endocrinology, Diabetes & Metabolism; Visit Provider Internal Medicine Endocrinology, Diabetes & Metabolism
DX: G56.00 Carpal tunnel syndrome, unspecified upper limb (principal); R20.0 Anesthesia of skin; R20.2 Paresthesia of skin
CPT/HCPCS: 95886; 95912

== ENCOUNTER 2022-06-12 22:44 | Emergency (ER) | payer BC, SELFPAY ==
[2022-06-12 22:45] VITALS: BP 160/88; PULSE 100; RESP 18; TEMP 36.6; O2SAT 99; BMI 31.2
--- NOTE | 2022-06-12 22:55 | EX.ED.DYSGE1 ---
HPI History of Present Illness Chief Complaint: Hypoglycemia Informant: patient Onset/Context/Timing Onset: Today Context: Sudden Onset Timing: Continuous Worsened by: Nothing Relieved by: Nothing Narrative Narrative: Patient presents with hypoglycemia that occurred today. Patient states she accidentally gave herself a 10 unit bolus of Humalog on her insulin pump. Patient states she has received 5 units of this bolus. Patient states she still has 5 units yet to go. Patient states her blood sugar dropped to 68. Patient states she was eating at home. Patient states her stomach feels full now and she no longer wants to eat anything. Patient has been monitoring her sugar on her insulin pump. Patient states it is starting to come out now. Patient denies any lightheadedness dizziness. Patient denies any chest pain or shortness of breath. Patient denies any nausea or vomiting. Patient states she is feeling better at this time. [facility] Medical History Carpal tunnel syndrome Diabetes type I Fistula Home Medications flaxseed oil 1,000 mg capsule 1,000 mg PO DAILY SUPPLEMENT 03/12/18 [History Last Taken Unknown] lactobacillus combination no.8 3 billion cell capsule (Adult Probiotic) 3,000 mmu cells PO DAILY 03/12/18 [History Last Taken 03/11/18 23:30] lancets 28 gauge (FreeStyle Lancets) #150 ea 11/29/19 [Rx Last Taken Unknown] multivitamin (Daily Multi-Vitamin tablet) 1 tab PO DAILY 02/19/21 [History Last Taken Unknown] True Metrix Glucose Test Strip (blood sugar diagnostic) #150 ea 08/20/21 [Rx Last Taken Unknown] insulin lispro 100 unit/mL subcutaneous solution (Humalog U-100 Insulin) 100 unit subcut DAILY #90 mL 01/30/22 [Rx Last Taken Unknown] Allergy/AdvReac Type Severity Reaction Status Date / Time gabapentin [From Neurontin] Allergy Other Verified 06/12/22 22:45 Family History Father Hypertension Arthritis Grandfather Cancer Arthritis Grandmother Cancer Arthritis Brother Diabetes Surgical History H/O: History of carpal tunnel surgery Hx of hysterectomy Perirectal abscess r ring a1 jerald release Social History Smoking Status: Never smoker second hand exposure: No alcohol intake: current alcohol intake frequency: a few times a month substance use type: does not use caffeine: Yes what type of physical activity do you participate in: none frequency: does not exercise seatbelt use: always ROS ROS ED Constitutional Constitutional ED: Denies chills or fever(s) Eyes Eyes: Denies blurry vision or change in vision ENT ENT ED: Denies rhinorrhea or sore throat Cardiovascular Cardiovascular: Denies chest pain or palpitations Respiratory/Chest Respiratory/Chest: Denies cough or dyspnea Gastrointestinal Gastrointestinal: Denies nausea or vomiting Genitourinary Genitourinary ED: Denies dysuria or hematuria Musculoskeletal Musculoskeletal: Denies back pain or neck pain Integumentary Denies abscess or rash Neurologic Neurologic: Denies headache(s) or weakness Allergic/Immunologic Allergic/Immunologic ED: Denies mouth swelling or urticaria EXAM Physical Exam Const Vital Signs: 06/12/22 22:45 Temperature 97.8 F Temperature Source Temporal Pulse Rate 100 Respiratory Rate 18 Blood Pressure 160/88 H Blood Pressure Mean 112 Pulse Ox 99 Oxygen Delivery Method Room Air Positive well nourished and well developed General Appearance ED: well developed and NAD HEENT Reports moist mucous membranes Neck supple and no JVD Resp normal respiratory effort and clear to auscultation bilaterally Cardio regular rate, regular rhythm and no murmurs GI normal to inspection, nondistended, normoactive bowel sounds and non-tender Palpation: soft Extremity normal to inspection General Extremety ED: Negative for edema or tenderness General Extremity: Negative for edema Neuro oriented x3, CN's II-XII intact bilaterally and no sensory deficits noted Sensorium / Orientation: alert Motor Exam: strength 5/5 throughout Psych mental status grossly normal Skin no rashes or lesions noted MDM MDM MDM Narrative Medical decision making narrative: Patient states that her blood sugar is improving. Patient states that she does not want to have an IV and wants to go home. Patient states she will continue to monitor her blood sugars at home. Patient was instructed to follow-up with her primary care physician in 5 to 7 days. Patient was instructed return if worse in any way. Patient understood and was agreeable with the plan. All questions were answered. Discharge Plan Triage Chief Complaint: Hypoglycemia ED Provider: Farzad Valdez Dx/Rx/DC Orders Clinical Impression: Hypoglycemia, Diabetes type I, Presence of insulin pump Instructions: ED Diabetic Insulin Reaction Prescriptions: No Action flaxseed oil 1,000 mg capsule 1,000 mg PO DAILY lactobacillus combination no.8 [Adult Probiotic] 3 billion cell capsule 3,000 mmu cells PO DAILY (DME) lancets [FreeStyle Lancets] 28 gauge misc See Rx Instructions .ROUTE .MEDSUPPLY Qty: 150 12RF Rx Instructions: As directed multivitamin [Daily Multi-Vitamin] Tablet 1 tab PO DAILY (DME) True Metrix Glucose Test Strip Strip See Rx Instructions .ROUTE .MEDSUPPLY Qty: 150 1RF Rx Instructions: 4 times daily insulin lispro [Humalog U-100 Insulin] 100 unit/mL solution 100 unit subcut DAILY Qty: 90 2RF Rx Instructions: via insulin pump Primary Care Provider: Care Physician,No Primary Referrals: Care Physician,No Primary [Primary Care Provider] - Doctor,Your [Non-Staff] - 5-7 Days Disposition Disposition: Home, Self Care
--- NOTE | 2022-06-12 23:15 | ED.RN ---
BLOOD SUGAR ON PT'S INSULIN PUMP IS 123
== END 2022-06-12 23:16 | disposition home or self-care (01) ==
PROVIDERS: Emergency Provider Emergency Medicine; Visit Provider Emergency Medicine
DX: E10.649 Type 1 diabetes mellitus with hypoglycemia without coma (principal); Z96.41 Presence of insulin pump (external) (internal)
CPT/HCPCS: 99282

== ENCOUNTER → 2023-07-19 | Outpatient (CLI) | payer BC, SELFPAY ==
--- OUTSIDE RECORDS SUMMARY | 2023-07-19 09:04 | XMS RPT_ITS | CCD ---
Author Name Unknown Address [address] [place] [address] Organization [facility] Care Team Providers Care Caul Puller Name Role Phone [place] AUDITOR, Marleni F Unavailable Unavailabl e [place] AUDITOR, Marleni F Unavailable Unavailabl e [place] AUDITOR, Marleni F Unavailable Unavailabl e Willard Rayo Unavailable Unavailable Beranrd RUSHING, Susu Spangler Unavailable ANJU FALL Unavailable Unavailable ANJU FALL Unavailable Unavailable NO REFERRING DR Unavailable Unavailable CLAUDIA, [facility] Admitting Unavaila stephanie TAYLOR, [facility] Attending Unavaila stephanie TAYLOR, [facility] Primary Care Unavaila Susu Hassan NP Unavailable Ramandeep Lira MD Primary Care Provider RAMANDEEP LIRA Primary Care Unavailable RAMANDEEP LIRA Primary Care Unavailable AI STEPHENS Attending Unavailabl e Allergies Allergy Classification Reported Allergen(s) Allergy Type Date of Onset Reaction(s) Facility (1 source) gabapentin; Translations: [NEURONTIN] Drug Allergy [facility] Repository (5 sources) gabapentin; Translations: [GABAPENTIN] Drug Allergy 04-23-2005 [facility] Work Phone: Medications Current Medications Medication Drug Class(es) Dates Sig (Normalized) Sig (Original) cephalexin 500 mg oral capsule (1 source) Cephalosporin Antibacterial Start: 11-25-2022 End: 12-02-2022 take 1 capsule by mouth three times daily cephALEXin (KEFLEX) 500 mg capsule Indications: Secondary infection of skin Take 1 capsule by mouth three times daily for 7 days. 21 capsule 0 11/25/2022 12/02/2022 Active Completed/Discontinued Medications Medication Drug Class(es) Dates Sig (Normalized) Sig (Original) B infantis/B ani/B vicky/B bifid (PROBIOTIC 4X ORAL) (4 sources) B infantis/B ani /B vicky/B bifid (PROBIOTIC 4X ORAL) Take by mouth. 0 Active Problems Active Problems Problem Classification Problem Date Documented Da te Episodic/Chronic Abdominal pain (1 source) Left lower quadrant pain; Translations: [Left lower quadrant pain] Episodic Allergic reactions (1 source) Contact dermatitis due to Genus Toxicodendron; Translations: [Unspecified contact dermatitis due to plants, except food] Episodic Blindness and vision defects (2 sources) Bilateral hyperopia of eyes; Translations: [Hypermetropia, bilateral] Episodic Diabetes mellitus without complication (16 sources) Type 1 diabetes mellitus; Translations: [Diabetes mellitus type 1 without retinopathy] Onset: 10-11-2005 10-30-2016 Chronic Genitourinary symptoms and ill-defined conditions (1 source) Increased frequency of urination; Translations: [Frequency of micturition] Episodic Nausea and vomiting (1 source) Nausea; Translations: [Nausea] Episodic Other nutritional; endocrine; and metabolic disorders (11 sources) Overweight; Translations: [Body mass index (BMI) 30.0-30.9, adult] Onset: 10-30-2016 10-30-2016 Chronic Other nutritional; endocrine; and metabolic disorders (3 sources) Body mass index (BMI) 30.0-30.9, adult; Translations: [Body mass index (BMI) 30.0-30.9, adult] Onset: 10-30-2016 10-30-2016 Chronic Skin and subcutaneous tissue infections (1 source) Infection of skin and/or subcutaneous tissue; Translations: [Other specified local infections of the skin and subcutaneous tissue] Episodic Unclassified (1 source) Unknown / UNK(Unknown) Onset: 12-16-2012 Past or Other Problems Problem Classification Problem Date Documented Date Episodic/Chronic Other aftercare (8 sources) Follow-up orthopedic assessment; Translations: [Encounter for other orthopedic aftercare] Onset: 01-06-2015 01-14-2015 Episodic Other connective tissue disease (15 sources) Pain in unspecified hand; Translations: [Acquired trigger finger] Onset: 11-17-2014 11-24-2014 Episodic Other connective tissue disease (1 source) Acquired trigger finger; Translations: [Trigger finger, unspecified finger] Onset: 11-17-2014 11-17-2014 Episodic Other connective tissue disease (4 sources) Radial styloid tenosynovitis; Translations: [Radial styloid tenosynovitis [de Quervain]] Onset: 05-02-2008 05-02-2008 Episodic Other and delivery including normal (4 sources) ; Translations: [Encounter for supervision of normal , unspecified, unspecified trimester] Onset: 09-05-2010 09-05-2010 Episodic Results Test Name Value Interpretation Reference Range Facil ity Vital Signs Date Time Vital Sign Value Performing Clinician Facility 11-25-2022 [id number] Body temperature 97.59 [degF] Nehemiah Lira APRN.BALANCE TRUING INSPECTOR Work Phone: [facility] 11-25-2022 09:11-0400 Body weight 67.13 kg Nehemiah Lira APRN.CNP Work Phone: [facility] 11-25-2022 09:11-0400 Diastolic blood pressure 64 mm[Hg] Nehemiah Lira APRN.BALANCE TRUING INSPECTOR Work Phone: [facility] 11-25-2022 09:11-0400 Heart rate 84 /min Nehemiah Lira APRN.BALANCE TRUING INSPECTOR Work Phone: [facility] 11-25-2022 09:11-0400 Respiratory rate 18 /min Nehemiah Lira APRN.BALANCE TRUING INSPECTOR Work Phone: [facility] 11-25-2022 09:11-0400 SaO2% (BldA) [Mass fraction] 100 % Nehemiah Lira APRN.BALANCE TRUING INSPECTOR Work Phone: [facility] 11-25-2022 09:11-0400 Systolic blood pressure 110 mm[Hg] Nehemiah Lira APRN.BALANCE TRUING INSPECTOR Work Phone: [facility] 09-30-2022 17:22-0400 Body temperature 97.9 [degF] Yeyo Junior MD Work Phone: [facility] 09-30-2022 17:22-0400 Body weight 71.4 kg Yeyo Junior MD Work Phone: [facility] 09-30-2022 17:22-0400 Diastolic blood pressure 76 mm[Hg] Yeyo Junior MD Work Phone: [facility] 09-30-2022 17:22-0400 Heart rate 81 /min Yeyo Junior MD Work Phone: [facility] 09-30-2022 17:22-0400 Respiratory rate 18 /min Yeyo Junior MD Work Phone: [facility] 09-30-2022 17:22-0400 SaO2% (BldA) [Mass fraction] 96 % Yeyo Junior MD Work Phone: [facility] 09-30-2022 17:22-0400 Systolic blood pressure 110 mm[Hg] Yeyo Junior MD Work Phone: [facility] 10-30-2016 09:54-0400 BMI (Body Mass Index) 30.03 kg/m2 Marleniharoon Hernandez LPN [facility] Work Phone: 10-30-2016 09:54-0400 Body weight 69.76 kg Susu Wagner NP [facility] Work Phone: 10-30-2016 09:54-0400 BP Diastolic 73 mm[Hg] Marleni Pinedalety DAN [facility] Work Phone: 10-30-2016 09:54-0400 BP Systolic 107 mm[Hg] Marleni Hernandez SY [facility] Work Phone: 10-30-2016 09:54-0400 Height 152.4 cm Marleni Pinedalety DAN [facility] Work Phone: 10-30-2016 09:54-0400 Pulse (Heart Rate) 77 /min Marleni Mary [facility] Work Phone: 10-30-2016 09:54-0400 Pulse Oximetry 100 % Marleni Pinedalety [facility]AN [facility] Work Phone: 05-10-2017 09:54-0400 Respiratory Rate 16 /min Marleni Nunez Endo cr[facility] Work Phone: 10-30-2016 09:54-0400 Weight 69.76 kg Marleni Nunez [facility] Work Phone: 11-17-2014 08:20-0400 BMI (Body Mass Index) 32.61 kg/m2 [facility] Work Phone: 11-17-2014 08:20-0400 BP Diastolic 75 mm[Hg] Willard [facility] ??? Work Phone: 11-17-2014 08:20-0400 BP Systolic 109 mm[Hg] Willard [facility] ??? Work Phone: 11-17-2014 08:20-0400 Height 152.4 cm Willard [facility] ??? Work Phone: 11-17-2014 08:20-0400 Pulse (Heart Rate) 73 /min Willard [facility] ??? Work Phone: 11-17-2014 08:20-0400 Weight 75.75 kg Willard [facility] ??? Work Phone: Encounters Encounter Date Encounter Type Care Provider Facility Start: 11-25-2022 End: 11-25-2022 ambulatory [facility] Facility:[facility] Start: 11-25-2022 End: 11-25-2022 Patient encounter procedure Nehemiah Lira APRN.BALANCE TRUING INSPECTOR Work Phone: [facility] Procedures Date Procedure Procedure Detail Performing Clinician Start: 09-30-2022 Urnls dip stick/tabl et rgnt auto w/o microscopy Kimmy Bhakta PAVickiC Work Phone: Start: 10-30-2016 End: 10-30-2016 *CMP Complete Metabolic Panel Susu Wagner NP Work Phone: Start: 10-30-2016 End: 10-30-2016 *Microalbumin, Creatine Ratio, rand urine Susu Wagner NP Work Phone: Start: 10-30-2016 End: 10-30-2016 Hemoglobin A1c/Hemoglobin.total in Blood Susu Wagner OFFICE SERVICE COORDINATOR Work Phone: Start: 10-30-2016 End: 10-30-2016 Lipid 1996 panel - Serum or Plasma Susu Wagner OFFICE SERVICE COORDINATOR Work Phone: Start: 10-30-2016 End: 10-30-2016 Documentation of current medications Susu Shethluis RUSHING Start: 10-30-2016 End: 10-30-2016 *CMP Complete Metabolic Panel Susu Wagner OFFICE SERVICE COORDINATOR Work Phone: Start: 10-30-2016 End: 10-30-2016 *Microalbumin, Creatine Ratio, rand urine Susu Wagner OFFICE SERVICE COORDINATOR Work Phone: Start: 10-30-2016 End: 10-30-2016 HbA1c Susu Wagner OFFICE SERVICE COORDINATOR Work Phone: Start: 10-30-2016 End: 10-30-2016 Lipid panel [AGGREGATE] Susu Shethluis N P Work Phone: Start: 11-17-2014 End: 11-24-2014 Documentation of current medications Addy Rivas Work Phone: Start: 11-17-2014 End: 11-24-2014 Documentation of current medications Addy Rivas Work Phone: Plan of Treatment Date Care Activity Detail Author Start: 09-17-2023 Hepatitis C antibody, confirmatory test DILATED RETINAL EXAM [facility] Start: 02-21-2023 Influenza vaccination INFLUENZA (Season Ended) [facility] Start: 06-23-2022 DEPRESSION ASSESSMENT DEPRESSION ASSESSMENT [facility] Start: 02-21-2022 Influenza vaccination INFLUENZA (#1) [facility] Start: 2021 Mammography MAMMOGRAM [facility] Start: 08-20-2020 PAP TESTING PAP TESTING [facility] Start: 10-30-2017 Hepatitis B surface antibody level LDL CHOLESTEROL [facility] Start: 10-30-2016 End: 10-30-2016 *CMP Complete Metabolic Panel *CMP Complete Metabolic Panel [facility] Work Phone: Start: 10-30-2016 End: 10-30-2016 *Microalbumin, Creatine Ratio, rand urine *Microalbumin, Creatine Ratio, rand urine [facility] Work Phone: Start: 10-30-2016 End: 10-30-2016 Hemoglobin A1c/Hemoglobin.total mass fraction (Bld) *HgA1C [facility] Work Phone: Start: 10-30-2016 End: 10-30-2016 Lipid panel [AGGREGATE] *Lipid Profile [facility] Work Phone: Start: 10-30-2016 End: 10-30-2016 Appointment Appointment [facility] Work Phone: Start: 10-30-2016 End: 10-30-2016 *CMP Complete Metabolic Panel *CMP Complete Metabolic Panel [facility] Work Phone: Start: 10-30-2016 End: 10-30-2016 *Microalbumin, Creatine Ratio, rand urine *Microalbumin, Creatine Ratio, rand urine [facility] Work Phone: Start: 10-30-2016 End: 10-30-2016 HbA1c *HgA1C [facility] Work Phone: Start: 10-30-2016 End: 10-30-2016 Lipid panel [AGGREGATE] *Lipid Profile [facility] Work Phone: Start: 05-09-2016 Hepatitis B screening URINE ALBUMIN:CREATININE RATIO [facility] Start: 11-07-2015 Hemoglobin A1c/Hemoglobin.total in Blood HBA1C [facility] Start: 06-08-2014 3 comp foot exam completed DIABETIC FOOT EXAM [facility] Start: 2011 HPV TESTING HPV TESTING [facility] Start: 06-20-2004 PNEUMOCOCCAL (2 - PCV) PNEUMOCOCCAL (2 - PCV) [facility] Start: 2000 Urine microalbumin profile DTAP,TDAP,TD (1 - Tdap) [facility] Start: 1999 ANNUAL PCP TEAM CHRONIC DISEASE VISIT ANNUAL PCP TEAM CHRONIC DISEASE VISIT [facility] Start: 1999 HEPATITIS C SCREENING HEPATITIS C SCREENING [facility] Start: 1999 HIV SCREENING HIV SCREENING [facility] Start: 1981 COVID-19 VACCINE (#1) COVID-19 VACCINE (#1) [facility] Start: 1981 HEPATITIS B (1 of 3 - 3-dose series) HEPATITIS B (1 of 3 - 3-dose series) [facility] Bacteria identified in Urine by Culture URINE CULTURE Microbiology Routine Urinary frequency 09/30/2022 5:46 PM EDT [facility] Work Phone: Patient Education [facility] Work Phone: Immunizations Immunization Date Immunization Notes Care Provider Regino hodgesmikal 06-20-2003 pneumococcal polysaccharide vaccine, 23 valent Ai Stephens OD Work Phone: [facility] Work Phone: Payers Date Payer Category Payer Unknown [id number] 1 2020 Unknown [employer] PPO [id number] 2020-Present [phone] [address] [place] [address] PPO [id number] 2020 Unknown [id number] Unknown [id number] Social History Date Type Detail Facility Start: 07-22-2011 Tobacco smoking stat [facility] Never smoked tobacco [facility] Work Phone: Start: 07-22-2011 Tobacco use and exposure Smokeless tobacco non-user [facility] Work Phone: Start: 09-16-2022 End: 11-25-2022 Alcohol intake Current non-drinker of alcohol (finding) [facility] Start: 1981 Sex Assigned At Not on file [facility] Medical Equipment Procedure Code Equipment Code Equipment Origin al Text Equipment Identifier Dates testing 10-12 ti mes daily due to Start: 06-07-2010 Clinical Notes 03-06-2007 to 11-25-2022 Nehemiah Lira APRN.[facility] - 11/25/2022 9:31 AM EDTTelephone Encounter - Yesy Parish - 10/02/2022 7:35 AM EDTTelephone Encounter - Delaney Linn APRN.CNP - 10/02/2022 7:10 AM EDTPatient Instructions Note Date & Type Note Facility 06-05-2023 Note HNO ID: [id number] Author: Nehemiah Liar APRN.BALANCE TRUING INSPECTOR Service: ? Author Type: Nurse Practitioner Type: Progress Notes Filed: 11/25/2022 9:35 AM Note Text: Subjective HPI HPI Tawnya Owusu is a 42 year old female who presents today for CC of itchy rash for 8 days, now red and painful in 1 area. Has tried otc medication without relief. Symptoms are worsened by nothing. Risk factors hx of bad reaction to PI. Patient diabetic, has pump. Has taken few doses of 10mg prednisone she had at home. .Patient presents with: Rash: Poison teo, widespread x8 days, R arm inner elbow swollen PAST MEDICAL HISTORY Diagnosis Date Migraine without aura Reflex sympathetic dystrophy of other specified site Type II or unspecified type diabetes mellitus without mention of complication, uncontrolled Viral pneumonia, unspecified 2001 Pneumonia PAST SURGICAL HISTORY Procedure Laterality Date CHG DELIVERY 09/30/2007 Steele x 3 HYSTERECTOMY 2014 with unilateral oophorectomy NEUROPLASTY AND/TRANSPOS MEDIAN NRV CARPAL TUNNE right 09/1999 Carpal tunnel decomp PAST SURGICAL HISTORY OF wisdom teeth removed under anesthia PAST SURGICAL HISTORY OF 12/27/2014 R ring finger A1 jerald release; Dr. Addy Rivas ALLERGIES Neurontin [Gabapentin] MEDICATIONS insulin lispro (HUMALOG) 100 unit/mL injection INJECT SUBCUTANEOUSLY. UP TO 140 UNITS DAILY IN INSULIN PUMP MULTIVITAMIN TAB Take one(1) tablet daily. predniSONE (DELTASONE) 10 mg tablet Take 4 tabs daily for 3 days, then 2 tabs daily for 3 days, then 1 tab daily for 3 days with food. triamcinolone acetonide (KENALOG) 0.1 % cream Apply 1 application to affected area three times daily for 10 days. Apply sparingly to area for rash/itching. cephALEXin (KEFLEX) 500 mg capsule Take 1 capsule by mouth three times daily for 7 days. B infantis/B ani/B vicky/B bifid (PROBIOTIC 4X ORAL) Take by mouth. (Patient not taking: Reported on 09/16/2022) cyclobenzaprine (FLEXERIL) 10 mg tablet Take 1 tablet by mouth every 8 hours as needed (FOR PAIN OR MUSCLE SPASM). (Patient not taking: Reported on 09/16/2022) naproxen (NAPROSYN) 500 mg tablet Take 1 tablet by mouth twice daily as needed (pain/inflammation, take with food.). (Patient not taking: Reported on 09/16/2022) glucagon, human recombinant, (GLUCAGON EMERGENCY) 1 mg injection INJECT FOR INSULIN SHOCK (Patient not taking: Reported on 09/16/2022) blood sugar diagnostic (MAX GLUCOSE TEST) Misc test strip testing 10-12 times daily due to (Patient not taking: Reported on 09/16/2022) INSULIN SYRINGE-NEEDLE U-100 1 ML 29 X 1/2 Use one syringe for each insulin dose/ per sliding scale (Patient not taking: Reported on 09/16/2022) FAMILY HISTORY Problem Relation Age of Onset Lipids Mother Diabetes Brother Macular Degen Maternal Grandmother Arthritis Maternal Grandmother Lipids Maternal Grandfather Cancer Paternal Grandmother ovarian cancer Alzheimer's Disease Paternal Grandmother Colon Cancer Paternal Grandfather Heart Paternal Uncle STENT Glaucoma No Family History Detached Retina No Family History Social History Tobacco Use Smoking status: Never Smokeless tobacco: Never Vaping Use Vaping Use: Never used Substance Use Topics Alcohol use: No Drug use: No Review of Systems Constitutional: Negative for chills and fever. Skin: Positive for itching and rash (Positive for clear, watery drainage. Denies warmth and purulent drainage. ). Objective Blood pressure 110/64, pulse 84, temperature 36.4 ?C (97.6 ?F), resp. rate 18, weight 67.1 kg (148 lb), last menstrual period 05/18/2015, SpO2 100 %. Physical Exam Constitutional: General: She is not in acute distress. Appearance: She is not toxic-appearing or diaphoretic. HENT: Head: Normocephalic and atraumatic. Skin: General: Skin is warm and dry. Findings: Rash present. Rash is vesicular (distribution linear ). Neurological: Mental Status: She is alert and oriented to person, place, and time. ASSESSMENT/PLAN: 1. Rhus dermatitis - ICD9: 692.6, ICD10: L25.5 (primary diagnosis) - Oral Steriod tx -Prednisone taper - Topical steriod tx with Rx for steriod cream/ointment- see orders - discussed skin care of rash - follow up if symptoms persist or worsen. - PREDNISONE 10 MG TABLET - TRIAMCINOLONE ACETONIDE 0.1 % TOPICAL CREAM 2. Secondary infection of skin - ICD9: 686.8, ICD10: L08.89 -use medication as prescribed -follow up with pcp if s/s persist Urgent f/u for worsening s/s. Agrees to plan Declines avs - CEPHALEXIN 500 MG CAPSULE No problem-specific Assessment AND Plan notes found for this encounter. [facility] 11-25-2022 History of Presen t illness Narrative Images from the original note were not included. Subjective HPI HPI Tawnya Owuus is a 42 year old female who presents today for CC of itchy rash for 8 days, now red and painful in 1 area. Has tried otc medication without relief. Symptoms are worsened by nothing. Risk factors hx of bad reaction to PI. Patient diabetic, has pump. Has taken few doses of 10mg prednisone she had at home. .Patient presents with: Rash: Poison teo, widespread x8 days, R arm inner elbow swollen PAST MEDICAL HISTORY Diagnosis Date Migraine without aura Reflex sympathetic dystrophy of other specified site Type II or unspecified type diabetes mellitus without mention of complication, uncontrolled Viral pneumonia, unspecified 2001 Pneumonia PAST SURGICAL HISTORY Procedure Laterality Date CHG DELIVERY 09/30/2007 Steele x 3 HYSTERECTOMY 2014 with unilateral oophorectomy NEUROPLASTY &/TRANSPOS MEDIAN NRV CARPAL TUNNE right 09/1999 Carpal tunnel decomp PAST SURGICAL HISTORY OF wisdom teeth removed under anesthia PAST SURGICAL HISTORY OF 12/27/2014 R ring finger A1 jerald release; Dr. Addy Rivas ALLERGIES Neurontin [Gabapentin] MEDICATIONS insulin lispro (HUMALOG) 100 unit/mL injection INJECT SUBCUTANEOUSLY. UP TO 140 UNITS DAILY IN INSULIN PUMP MULTIVITAMIN TAB Take one(1) tablet daily. predniSONE (DELTASONE) 10 mg tablet Take 4 tabs daily for 3 days, then 2 tabs daily for 3 days, then 1 tab daily for 3 days with food. triamcinolone acetonide (KENALOG) 0.1 % cream Apply 1 application to affected area three times daily for 10 days. Apply sparingly to area for rash/itching. cephALEXin (KEFLEX) 500 mg capsule Take 1 capsule by mouth three times daily for 7 days. B infantis/B ani/B vicky/B bifid (PROBIOTIC 4X ORAL) Take by mouth. (Patient not taking: Reported on 09/16/2022) cyclobenzaprine (FLEXERIL) 10 mg tablet Take 1 tablet by mouth every 8 hours as needed (FOR PAIN OR MUSCLE SPASM). (Patient not taking: Reported on 09/16/2022) naproxen (NAPROSYN) 500 mg tablet Take 1 tablet by mouth twice daily as needed (pain/inflammation, take with food.). (Patient not taking: Reported on 09/16/2022) glucagon, human recombinant, (GLUCAGON EMERGENCY) 1 mg injection INJECT FOR INSULIN SHOCK (Patient not taking: Reported on 09/16/2022) blood sugar diagnostic (MAX GLUCOSE TEST) Misc test strip testing 10-12 times daily due to (Patient not taking: Reported on 09/16/2022) INSULIN SYRINGE-NEEDLE U-100 1 ML 29 X 1/2 Use one syringe for each insulin dose/ per sliding scale (Patient not taking: Reported on 09/16/2022) FAMILY HISTORY Problem Relation Age of Onset Lipids Mother Diabetes Brother Macular Degen Maternal Grandmother Arthritis Maternal Grandmother Lipids Maternal Grandfather Cancer Paternal Grandmother ovarian cancer Alzheimer's Disease Paternal Grandmother Colon Cancer Paternal Grandfather Heart Paternal Uncle STENT Glaucoma No Family History Detached Retina No Family History Social History Tobacco Use Smoking status: Never Smokeless tobacco: Never Vaping Use Vaping Use: Never used Substance Use Topics Alcohol use: No Drug use: No Review of Systems Constitutional: Negative for chills and fever. Skin: Positive for itching and rash (Positive for clear, watery drainage. Denies warmth and purulent drainage. ). Objective Blood pressure 110/64, pulse 84, temperature 36.4 C (97.6 F), resp. rate 18, weight 67.1 kg (148 lb), last menstrual period 05/18/2015, SpO2 100 %. Physical Exam Constitutional: General: She is not in acute distress. Appearance: She is not toxic-appearing or diaphoretic. HENT: Head: Normocephalic and atraumatic. Skin: General: Skin is warm and dry. Findings: Rash present. Rash is vesicular (distribution linear ). Neurological: Mental Status: She is alert and oriented to person, place, and time. ASSESSMENT/PLAN: 1. Rhus dermatitis - ICD9: 692.6, ICD10: L25.5 (primary diagnosis) - Oral Steriod tx -Prednisone taper - Topical steriod tx with Rx for steriod cream/ointment- see orders - discussed skin care of rash - follow up if symptoms persist or worsen. - PREDNISONE 10 MG TABLET - TRIAMCINOLONE ACETONIDE 0.1 % TOPICAL CREAM 2. Secondary infection of skin - ICD9: 686.8, ICD10: L08.89 -use medication as prescribed -follow up with pcp if s/s persist Urgent f/u for worsening s/s. Agrees to plan Declines avs - CEPHALEXIN 500 MG CAPSULE No problem-specific Assessment & Plan notes found for this encounter. documented in this encounter [facility] 10-02-2022 Miscellaneous Notes Formattin g of this note might be different from the original. Patient given results and verbalized understanding of instructions given. Yesy Parish Please inform patient that urine culture did not show any growth of bacteria requiring treatment. If symptoms improving complete antibiotic Advise due to blood in the urine that she follow up with urology for recheck of urine in 1-2 weeks as discussed at visit yesterday. Delaney Linn APRN.CNP documented in this encounter [facility] 09-30-2022 Note HNO ID: [id number] Author: Yeyo Junior MD Service: ? Author Type: Physician Type: Progress Notes Filed: 09/30/2022 5:47 PM Note Text: Patient presents with: UTI: Nausea, low back pain x this AM HPI: Symptoms started today. Concerned she has a UTI. Dysuria: No Frequency: Yes Hematuria: No Nausea: Yes Fever or chills: No Back pain: Yes, lower lumbar/left lumbar Abdominal pain: Yes, LLQ Prior UTI: Yes Personal history of kidney stones: No. Paternal side has kidney stones. Blood glucose has been running high today. PAST MEDICAL HISTORY Diagnosis Date Migraine without aura Reflex sympathetic dystrophy of other specified site Type II or unspecified type diabetes mellitus without mention of complication, uncontrolled Viral pneumonia, unspecified 2002 Pneumonia PAST SURGICAL HISTORY Procedure Laterality Date [facility] [facility]IV[facility] x 3 HYSTERECTOMY 2014 with unilateral oophorectomy NEUROPLASTY AND/TRANSPOS MEDIAN NRV CARPAL TUNNE right 09/1999 Carpal tunnel decomp PAST SURGICAL HISTORY OF wisdom teeth removed under anesthia PAST SURGICAL HISTORY OF 12/27/2014 R ring finger A1 jerald release; Dr. Addy Rivas MEDICATIONS: Current Outpatient Medications Medication Sig insulin lispro (HUMALOG) 100 unit/mL injection INJECT SUBCUTANEOUSLY. UP TO 140 UNITS DAILY IN INSULIN PUMP B infantis/B ani/B vicky/B bifid (PROBIOTIC 4X ORAL) Take by mouth. (Patient not taking: Reported on 09/16/2022) cyclobenzaprine (FLEXERIL) 10 mg tablet Take 1 tablet by mouth every 8 hours as needed (FOR PAIN OR MUSCLE SPASM). (Patient not taking: Reported on 09/16/2022) naproxen (NAPROSYN) 500 mg tablet Take 1 tablet by mouth twice daily as needed (pain/inflammation, take with food.). (Patient not taking: Reported on 09/16/2022) glucagon, human recombinant, (GLUCAGON EMERGENCY) 1 mg injection INJECT FOR INSULIN SHOCK (Patient not taking: Reported on 09/16/2022) blood sugar diagnostic (MAX GLUCOSE TEST) Misc test strip testing 10-12 times daily due to (Patient not taking: Reported on 09/16/2022) INSULIN SYRINGE-NEEDLE U-100 1 ML 29 X 1/2 Use one syringe for each insulin dose/ per sliding scale (Patient not taking: Reported on 09/16/2022) MULTIVITAMIN TAB Take one(1) tablet daily. No current facility-administered medications for this visit. ALLERGIES: ALLERGIES Allergen Reactions Neurontin [Gabapent* 1800mg /day caused paresthesia VITALS: BP 110/76 Pulse 81 Temp 36.6 ?C (97.9 ?F) Resp 18 Wt 71.4 kg (157 lb 6.4 oz) LMP 05/18/2015 SpO2 96% PHYSICAL EXAM: GEN: NAD HEENT: EOMI, conjunctiva clear, HEART: regular rate and rhythm, no murmurs LUNGS: clear to auscultation, no wheezes or crackles, no increased WOB ABDOMEN: Soft, nondistended, no masses, suprapubic and LLQ tenderness BACK: No CVA or midline tenderness. Discomfort left lower lumbar. ASSESSMENT/PLAN: 1. Urinary frequency - ICD9: 788.41, ICD10: R35.0 (primary diagnosis) 2. Nausea - ICD9: 787.02, ICD10: R11.0 3. LLQ pain - ICD9: 789.04, ICD10: R10.32 - UA DIP, URINE (POC) - trace blood and trace LE, suspect UTI. Discussed differential includes renal calculus, diverticulitis, adhesion, ovarian issue (she thinks she only has a right ovary intact). - URINE CULTURE - needs follow up if no clear infection. She has seen urology before and will follow up there. - NITROFURANTOIN MONOHYDRATE AND MACROCRYSTAL 100 MG ORAL CAP - FLUCONAZOLE 150 MG TABLET requested. Proceed to the ER with worsening abdominal pain, worsening nausea, fever. Yeyo Junior MD [facility] 09-30-2022 History of Presen t illness Narrative Patient presents with: UTI: Nausea, low back pain x this AM HPI: Symptoms started today. Concerned she has a UTI. Dysuria: No Frequency: Yes Hematuria: No Nausea: Yes Fever or chills: No Back pain: Yes, lower lumbar/left lumbar Abdominal pain: Yes, LLQ Prior UTI: Yes Personal history of kidney stones: No. Paternal side has kidney stones. Blood glucose has been running high today. PAST MEDICAL HISTORY Diagnosis Date Migraine without aura Reflex sympathetic dystrophy of other specified site Type II or unspecified type diabetes mellitus without mention of complication, uncontrolled Viral pneumonia, unspecified 2001 Pneumonia PAST SURGICAL HISTORY Procedure Laterality Date CHG DELIVERY 09/30/2007 [facility] x 3 HYSTERECTOMY 2014 with unilateral oophorectomy NEUROPLASTY &/TRANSPOS MEDIAN NRV CARPAL TUNNE right 09/1999 Carpal tunnel decomp PAST SURGICAL HISTORY OF wisdom teeth removed under anesthia PAST SURGICAL HISTORY OF 12/27/2014 R ring finger A1 jerald release; Dr. Addy Rivas MEDICATIONS: Current Outpatient Medications Medication Sig insulin lispro (HUMALOG) 100 unit/mL injection INJECT SUBCUTANEOUSLY. UP TO 140 UNITS DAILY IN INSULIN PUMP B infantis/B ani/B vicky/B bifid (PROBIOTIC 4X ORAL) Take by mouth. (Patient not taking: Reported on 09/16/2022) cyclobenzaprine (FLEXERIL) 10 mg tablet Take 1 tablet by mouth every 8 hours as needed (FOR PAIN OR MUSCLE SPASM). (Patient not taking: Reported on 09/16/2022) naproxen (NAPROSYN) 500 mg tablet Take 1 tablet by mouth twice daily as needed (pain/inflammation, take with food.). (Patient not taking: Reported on 09/16/2022) glucagon, human recombinant, (GLUCAGON EMERGENCY) 1 mg injection INJECT FOR INSULIN SHOCK (Patient not taking: Reported on 09/16/2022) blood sugar diagnostic (MAX GLUCOSE TEST) Misc test strip testing 10-12 times daily due to (Patient not taking: Reported on 09/16/2022) INSULIN SYRINGE-NEEDLE U-100 1 ML 29 X 1/2 Use one syringe for each insulin dose/ per sliding scale (Patient not taking: Reported on 09/16/2022) MULTIVITAMIN TAB Take one(1) tablet daily. No current facility-administered medications for this visit. ALLERGIES: ALLERGIES Allergen Reactions Neurontin [Gabapent* 1800mg /day caused paresthesia VITALS: BP 110/76 Pulse 81 Temp 36.6 C (97.9 F) Resp 18 Wt 71.4 kg (157 lb 6.4 oz) LMP 05/18/2015 SpO2 96% PHYSICAL EXAM: GEN: NAD HEENT: EOMI, conjunctiva clear, HEART: regular rate and rhythm, no murmurs LUNGS: clear to auscultation, no wheezes or crackles, no increased WOB ABDOMEN: Soft, nondistended, no masses, suprapubic and LLQ tenderness BACK: No CVA or midline tenderness. Discomfort left lower lumbar. ASSESSMENT/PLAN: 1. Urinary frequency - ICD9: 788.41, ICD10: R35.0 (primary diagnosis) 2. Nausea - ICD9: 787.02, ICD10: R11.0 3. LLQ pain - ICD9: 789.04, ICD10: R10.32 - UA DIP, URINE (POC) - trace blood and trace LE, suspect UTI. Discussed differential includes renal calculus, diverticulitis, adhesion, ovarian issue (she thinks she only has a right ovary intact). - URINE CULTURE - needs follow up if no clear infection. She has seen urology before and will follow up there. - NITROFURANTOIN MONOHYDRATE & MACROCRYSTAL 100 MG ORAL CAP - FLUCONAZOLE 150 MG TABLET requested. Proceed to the ER with worsening abdominal pain, worsening nausea, fever. Yeyo Junior MD documented in this encounter [facility] 09-16-2022 Note HNO ID: [id number] Author: Ai Stephens OD Service: ? Author Type: DIRECTOR OF TECHNOLOGY Type: Progress Notes Filed: 09/16/2022 9:34 AM Note Text: ASSESSMENT/PLAN: 1. Type 1 diabetes mellitus without retinopathy (HCC) - ICD9: 250.01, ICD10: E10.9 (primary diagnosis) Examination shows no ocular diabetic complications today. Discussed need for optimal diabetes control to minimize chance of ocular complications. Advise patient to immediately report worsening in status or additional symptoms. Continue yearly dilated eye examinations. 2. Hyperopia, bilateral - ICD9: 367.0, ICD10: H52.03 3. Regular astigmatism, bilateral - ICD9: 367.21, ICD10: H52.223 Discussed the option of glasses to be used for driving at night and computer or near work Recommended yearly dilated exams. Ai Stephens, CAMELIA I have confirmed and edited as necessary the relevant ophthalmic history, ROS, and the neuro exam findings as obtained by others. [facility] 09-16-2022 Instructions Ai Stephens, CAMELIA - 09/16/2022 9:33 AM EDT ASSESSMENT/PLAN: 1. Type 1 diabetes mellitus without retinopathy (HCC) - ICD9: 250.01, ICD10: E10.9 (primary diagnosis) Examination shows no ocular diabetic complications today. Discussed need for optimal diabetes control to minimize chance of ocular complications. Advise patient to immediately report worsening in status or additional symptoms. Continue yearly dilated eye examinations. 2. Hyperopia, bilateral - ICD9: 367.0, ICD10: H52.03 3. Regular astigmatism, bilateral - ICD9: 367.21, ICD10: H52.223 Discussed the option of glasses to be used for driving at night and computer or near work Recommended yearly dilated exams. documented in this encounter [facility] 09-16-2022 History of Presen t illness Narrative ASSESSMENT/PLAN: 1. Type 1 diabetes mellitus without retinopathy (HCC) - ICD9: 250.01, ICD10: E10.9 (primary diagnosis) Examination shows no ocular diabetic complications today. Discussed need for optimal diabetes control to minimize chance of ocular complications. Advise patient to immediately report worsening in status or additional symptoms. Continue yearly dilated eye examinations. 2. Hyperopia, bilateral - ICD9: 367.0, ICD10: H52.03 3. Regular astigmatism, bilateral - ICD9: 367.21, ICD10: H52.223 Discussed the option of glasses to be used for driving at night and computer or near work Recommended yearly dilated exams. Ai Stephens, OD I have confirmed and edited as necessary the relevant ophthalmic history, ROS, and the neuro exam findings as obtained by others. documented in this encounter [facility] documented as of this encounter (statuses as of 09/16/2022) [facility]09-14-2007 History of Past illness Narrative* Problem Noted Date Resolved Date Supervision of other high-risk (V23.89) 03/06/2007 04/21/2008 documented as of this encounter (statuses as of 10/01/2022) [facility]2007 History of Past illness Narrative* Problem Noted Date Resolved Date Supervision of other high-risk (V23.89) 03/06/2007 04/21/2008 documented as of this encounter (statuses as of 10/02/2022) [facility] History of Past illness Narrative* Problem Noted Date Resolved Date Supervision of other high-risk (V23.89) 03/06/2007 04/21/2008 documented as of this encounter (statuses as of 11/25/2022) [facility] Type 1 diabetes mellitus without retinopathy (HCC)- Primary Type I (juvenile type) diabetes mellitus without mention of complication, not stated as uncontrolled Hyperopia, bilateral Regular astigmatism, bilateral [facility] Diagnosis Urinary frequency- Primary Nausea Nausea alone LLQ pain Abdominal pain, left lower quadrant [facility] Diagnosis Rhus dermatitis- Primary Contact dermatitis and other eczema due to plants (except food) Secondary infection of skin Other specified local infections of skin and subcutaneous tissue documented in this encounter [facility] Summary Purpose Family History No Family History Records FoundNo Family History Records FoundNo Family History Records Found Advance Directives No Advanced Directives Records FoundNo Advanced Directives Records FoundNo Advanced Directives Records Found Medications Administered Section Inactive Administered Medications - up to 3 most recent administrations Medication Order MAR Action Action Date Dose Rate Site PHENYLephrine 2.5 % 1 Drop (AK-DILATE, JESSICA-SYNEPHRINE) 1 Drop, BOTH EYES, ONCE, 1 dose, On Fri09/16/22 at 0930, FOR OPHTHALMIC USE ONLY PROTECT FROM LIGHT Given 09/16/2022 9:30 AM EDT 1 Drop tropicamide 1 % 1 Drop (MYDRIACYL) 1 Drop, BOTH EYES, ONCE, 1 dose, On Fri09/16/22 at 0930, FOR THE EYE Given 09/16/2022 9:30 AM EDT 1 Drop Additional Source Comments INFORMATION SOURCE (unrecogn ized section and content) DATE CREATED AUTHOR AUTHOR'S ORGANIZ ATION 06/21/2019 [facility] DATE CREATED AUTHOR AUTHOR'S ORGANIZ ATION 12/03/2022 [facility] Source Comments (unrecognize d section and content) In the event this informatio n is protected by the Federal Confidentiality of Alcohol and Drug Abuse Patient Records regulations: The Federal rules restrict any use of the information to criminally investigate or prosecute any alcohol or drug abuse patient.[facility] the event this information is protected by the Federal Confidentiality of Alcohol and Drug Abuse Patient Records regulations: The Federal rules restrict any use of the information to criminally investigate or prosecute any alcohol or drug abuse patient.[facility] the event this information is protected by the [facility] Confidentiality of Alcohol and Drug Abuse Patient Records regulations: The Federal rules restrict any use of the information to criminally investigate or prosecute any alcohol or drug abuse patient.[facility] the event this information is protected by the Federal Confidentiality of Alcohol and Drug Abuse Patient Records regulations: The Federal rules restrict any use of the information to criminally investigate or prosecute any alcohol or drug abuse patient.[facility] Reason for Visit (unrecogniz ed section and content) Reason Comments UTI Nausea, low back saravanan n x this AM Reason Comments Results Reason Comments Rash Poison teo, widespre ad x8 days, R arm inner elbow swollen Care Teams (unrecognized sec tion and content) Caul Puller Relationship Specialty Start Date End Date Ramandeep Lira MD [address] [address] PCP - General Endocrinology 09/16/22 Caul Puller Relationship Specialty Start Date End Date Ramandeep Lira MD [address] [facility] [address] [place], [place] [id number] PCP - General Endocrinology 09/16/22 FOR RECORDS PERTAINING TO PATIENTS WHO ARE OR HAVE BEEN ENROLLED IN A CHEMICAL DEPENDENCY/SUBSTANCEABUSE PROGRAM, SOME INFORMATION MAY BE OMITTED. This clinical summary was aggregated from multiple sources. Caution should be exercised in using it in the provision of clinical care. This summary normalizes information from multiple sources, and as a consequence, information in this document may materially change the coding, format and clinical context of patient data. In addition, data may be omitted in some cases. CLINICAL DECISIONS SHOULD BE BASED ON THE PRIMARY CLINICAL RECORDS. [facility] [employer] [facility]. provides no warranty or guarantee of the accuracy or completeness of information in this document.
[2023-07-19 11:28] LABS: ALB/GLOB Ratio 0.9 RATIO (0.9-2.4); AST(SGOT) 27 U/L (15-37); Alanine Aminotransfer ALT/SGPT 40 U/L (13-56); Albumin, Serum 3.4 g/dL (3.2-5.0); Alkaline Phosphatase 79 U/L (45-117); Anion Gap 2 (5-15); BUN 12 mg/dL (7-18); BUN/Creat Ratio 15.1 RATIO (10-20); Calcium,Total 8.9 mg/dL (8.5-10.1); Chloride 107 mmol/L (98-107); Cholesterol 231 mg/dL (200); EST Glomerular Filtration Rate 84 mL/min (>60); Est Glom Filt Rate - Afr Amer 102 mL/min (>60); Globulin 3.6 g/dL (2.2-4.2); Glucose 140 mg/dL (74-106); High Density Lipoprotein 84 mg/dL; Potassium 4.3 mmol/L (3.5-5.1); Sodium Level 138 mmol/L (136-145); Thyroid Stim Hormone (TSH) 2.16 uIU/mL (0.358-3.74); Triglycerides 60 mg/dL; Very Low Density Lipoprotein 12 mg/dL (5-40)
[2023-07-21 14:19] LABS: Microalbumin:Creatinine Ratio 6.5 mg/g CRE (<30 mg/g CRE)
== END | disposition home or self-care (01) ==
LOC: LAB 09:03
PROVIDERS: Referring Provider Internal Medicine Endocrinology, Diabetes & Metabolism; Visit Provider Internal Medicine Endocrinology, Diabetes & Metabolism
DX: E10.9 Type 1 diabetes mellitus without complications (principal)
CPT/HCPCS: 36415; 80053; 80061; 82043; 82570; 84443

== ENCOUNTER 2024-02-10 10:03 | Emergency (ER) | payer BC, SELFPAY ==
[2024-02-10 10:04] VITALS: BP 135/70; PULSE 85; RESP 16; TEMP 36.7; O2SAT 100
[2024-02-10 10:06] VITALS: BMI 28.8
--- NOTE | 2024-02-10 10:15 | EX.ED.UPPERE ---
HPI History of Present Illness HPI Narrative: 43-year-old female diabetic [id number]. Was using a knife and accidentally lacerated her right long finger at the DIP skin crease on the palmar side. This occurred about an hour ago. Tetanus is not up-to-date will be updated. She denies any other injuries. Chief Complaint: Laceration Informant: patient and spouse/S.O. Occured/Mechanism Mechanism/Context: Yes injury Onset/Context/Timing Onset: Today Context: Sudden Onset Timing: Continuous Quality of Pain: Sharp Current Severity: Mild Maximum Severity: Mild Associated Symptoms Associated Symptoms: Negative for Parasthesia or Weakness Narrative Narrative: 43-year-old diabetic female right hand dominant laceration right long finger on the palmar surface at the DIP skin crease. Tetanus Immunization: >10 years Prior similar symptoms: No Recent Illness/Hospitalization: No PFSH PFSH Medical History Overweight (BMI 25.0-29.9) Carpal tunnel syndrome Fistula Diabetes type I Home Medications ?Medication ?Instructions ?Recorded ?Last Taken ?Type lancets 28 gauge (FreeStyle #150 ea 11/29/19 Unknown Rx Lancets) True Metrix Glucose Test Strip #150 ea 08/20/21 Unknown Rx (blood sugar diagnostic) insulin lispro 100 unit/mL 100 unit subcut DAILY #90 mL 07/21/23 Unknown Rx subcutaneous solution (Humalog U-100 Insulin) cephalexin 500 mg capsule 500 mg PO Q8H #21 caps 02/10/24 Unknown Rx fluconazole 200 mg tablet 200 mg PO DAILY #1 TAB 02/10/24 Unknown Rx (Diflucan) Allergy/AdvReac Type Severity Reaction Status Date / Time gabapentin (From Neurontin) Allergy Other Verified 02/10/24 10:06 Family History Father Hypertension Arthritis Grandfather Cancer Arthritis Grandmother Cancer Arthritis Brother Diabetes Surgical History Perirectal abscess Hx of hysterectomy r ring a1 jerald release History of carpal tunnel surgery H/O: Social History Smoking Status: Never smoker second hand exposure: No alcohol intake: current alcohol intake frequency: a few times a month substance use type: does not use caffeine: Yes what type of physical activity do you participate in: none frequency: does not exercise seatbelt use: always ROS ROS ED ROS Narrative No recent illness. Constitutional Constitutional ED: Denies chills or fever(s) Eyes Eyes: Denies blurry vision ENT ENT ED: Denies ear pain Cardiovascular Cardiovascular: Denies chest pain Respiratory/Chest Respiratory/Chest: Denies cough or dyspnea Gastrointestinal Gastrointestinal: Denies abdominal pain Genitourinary Genitourinary ED: Denies dysuria or hematuria Musculoskeletal Musculoskeletal: Denies back pain or myalgias Integumentary Denies abscess or Abrasions Neurologic Neurologic: Denies headache(s) Psychiatric Psychiatric: Denies anxiety or depression Endocrine Endocrinology: Denies cold intolerance Hematologic/Lymphatic Hematologic/Lymphatic: Denies easy bleeding or easy bruising Allergic/Immunologic Allergic/Immunologic ED: Denies mouth swelling EXAM Physical Exam Narrative Exam Narrative: 43-year-old female no acute distress vital signs stable afebrile. HEENT exam normal. Lungs clear. Heart regular rhythm. Abdomen soft. Right hand palmar aspect DIP skin crease result laceration. Mild oozing of blood. She has normal distal touch sensation. She at this time cannot do flexion so I am concerned there could be a flexor tendon injury. This will need to be repaired. Const Vital Signs: 02/10/24 10:04 Temperature 98.0 F Temperature Source Oral Pulse Rate 85 Respiratory Rate 16 Blood Pressure 135/70 H Blood Pressure Mean 91 Pulse Ox 100 Oxygen Delivery Method Room Air Positive well nourished and well developed; Negative for cachectic, contractures or unkempt General Appearance ED: well developed and NAD; Negative for unkempt, cachectic, contractures, cyanotic or diaphoretic Nutritional Appearance: Negative for cachectic HEENT Reports moist mucous membranes atraumatic; Negative for trauma or tenderness Eyes PERRL and EOMs intact bilaterally General Eye ED: Negative for other Neck full ROM and supple General: Negative for tenderness Lymph Lymphatic: Negative for other Chest Wall inspection of chest normal and palpation of chest normal Chest: Negative for other Resp normal respiratory effort and clear to auscultation bilaterally Effort and Inspection: Negative for pain with movement Auscultation: Negative for rales, rhonchi or wheezes Cardio regular rate, regular rhythm, S1 normal heart sound, S2 normal heart sound and no murmurs Rate: Negative for bradycardia or tachycardic Rhythm: Negative for abnormal rhythm GI non-tender, non-distended and no masses Inspection: Negative for abdominal distention Auscultation: normoactive bowel sounds Palpation: soft; Negative for tender, guarding or rebound tenderness present Back/Spine no CVA tenderness Extremity normal to inspection and full ROM Extremity Narrative: Except right long finger. Laceration palmar skin DIP crease. Normal sensation. No signs of infection. Concern for a flexor tendon injury. General Extremety ED: Negative for edema General Extremity: Negative for edema Neuro oriented x3, CN's II-XII intact bilaterally, moves all extremities and no sensory deficits noted Sensorium / Orientation: alert, oriented to person and oriented to place Motor Exam: strength 5/5 throughout Psych mental status grossly normal Appearance: Negative for unkempt Mood & Affect: Negative for depressed or anxious Skin Lesions: no lesions Rashes: no rashes Trauma: laceration MDM MDM MDM Narrative Medical decision making narrative: 43-year-old right hand laceration DIP right long finger. Rule out flexor tendon laceration. Will need to be repaired. Tetanus updated. Right long finger laceration involve the joint and flexor tendon. I spoke to Dr. Marlon Marcano of plastic surgery. I closed the wound and washed it out well. She be placed on Keflex 3 times a day for a week. Patient was splinted in flex position. And he will see her today in the office is set up for tendon repair surgery tomorrow. Tetanus was updated. History & Record Review Discussion w/independent historian: Patient and Family Radiography Diagnostic Testing: Right long finger x-ray 3 views interpreted by myself shows no acute fracture. No foreign body. Procedures Lacerations Right long finger DIP laceration closure.: Length: 2 in Depth: Tendon Shape: Linear Prep: Shruti-Aram Laceration repair: Digital block and Irrigated Number of Sutures/[place]: 5 Suture Information: Ethilon, Simple and 4-0 Comment: Closed using 4-0 Ethilon sutures. Tolerated well. Digital block. Wound explored. Involve the flexor tendon at the DIP. Skin closure. Follow-up with plastic surgery today. Discharge Plan Triage Chief Complaint: Laceration ED Provider: Steven Yusuf Dx/Rx/DC Orders Clinical Impression: Finger laceration, Flexor tendon laceration of finger with open wound Instructions: ED Laceration, Hand: All Closures Prescriptions: New cephalexin 500 mg capsule 500 mg PO Q8H Qty: 21 0RF fluconazole [Diflucan] 200 mg tablet 200 mg PO DAILY Qty: 1 0RF Rx Instructions: Take after you are finished with the antibiotic. No Action (DME) lancets [FreeStyle Lancets] 28 gauge misc See Rx Instructions .ROUTE .MEDSUPPLY Qty: 150 12RF Rx Instructions: As directed (DME) True Metrix Glucose Test Strip Strip See Rx Instructions .ROUTE .MEDSUPPLY Qty: 150 1RF Rx Instructions: 4 times daily insulin lispro [Humalog U-100 Insulin] 100 unit/mL solution 100 unit subcut DAILY Qty: 90 2RF Rx Instructions: via insulin pump Primary Care Provider: Care Physician,No Primary Referrals: Marlon Christy MD [Med Staff - Active Staff] - 1 Day Care Physician,No Primary [Primary Care Provider] - Activity Restrictions/Additional Instructions: Go from here directly to Dr. Christy's office. He plans on fixing your flexor tendon tomorrow. Tylenol and Motrin for pain. Keflex 3 times a day. Take the Diflucan when you are done with antibiotics to prevent a yeast infection. Print Language: Occitan Disposition Disposition: Home, Self Care
[2024-02-10] MEDS: Diphth,Pertuss(Acell),Tet Vac 0.5 ML Vial IM (10:27)
[2024-02-10] MEDS: Lidocaine 1% (20 ml mdv) 20 ML Vial 10 ML INFILT (10:28)
--- NOTE | 2024-02-10 11:00 | RAD_ITS ---
STUDY: X-RAY - RIGHT HAND, ATTENTION THIRD FINGER REASON FOR EXAM: Female, 43 years old. Right long finger lac into joint TECHNIQUE: 3 view(s) of the finger were obtained. COMPARISON: None. FINDINGS: Normal metacarpal head. Normal metacarpophalangeal joint. Normal proximal phalanx. Normal middle phalanx. Normal distal phalanx. Normal proximal interphalangeal joint. Normal distal interphalangeal joint. Soft tissue laceration. No bony abnormality is seen. No radiopaque foreign bodies present. RAD/Finger(s) Min 2 Views IMPRESSION: Soft tissue laceration. No radiopaque foreign body. No bony abnormality is seen. Electronically Signed: Lico Cho MD at 11:29 EDT ,
[2024-02-10 11:52] VITALS: BP 107/64; PULSE 78; RESP 16; TEMP 36.7; O2SAT 100
== END 2024-02-10 11:53 | disposition home or self-care (01) ==
PROVIDERS: Emergency Provider Emergency Medicine; Visit Provider Emergency Medicine
DX: S66.122A Laceration of flexor muscle, fascia and tendon of right middle finger at wrist and hand level, initial encounter (principal); E10.9 Type 1 diabetes mellitus without complications; Z23 Encounter for immunization; W26.0XXA Contact with knife, initial encounter; Z79.899 Other long term (current) drug therapy
CPT/HCPCS: 13131; 73140; 90471; 90715; 99284

== ENCOUNTER 2024-02-11 11:34 | Day surgery (SDC) | payer BC, SELFPAY ==
[2024-02-11] VITALS (9 sets, daily range): BP systolic 110–136; BP diastolic 67–78; PULSE 69–113; RESP 14–18; TEMP 36.4–37; O2SAT 95–100; BMI 28.8
--- NOTE | 2024-02-11 12:19 | PCM.PRE.AN2 ---
ASA Classification* ASA Classification ASA Classification: 2 Assessment & Plan Anesthesia* Anesthesia Assessment Anesthesia Assessment: Discussed sedation and/or anesthesia options, risks, benefits, and alternatives with patient/parents/legal guardian/POA. Questions invited. The patient/parents/legal guardian/POA seems to understand and agrees to proceed with anesthesia plan. Reviewed the physical assessment, medical history, allergy history and patient home medications list prior to surgery/procedure/anesthetic and documented any changes. Performed airway and anesthesia risk assessments. Anesthesia Type Anesthesia Type: General (see written pre anesthesia record for full assessment) Anesthesia Focused Assessment* Temperature: 98.6 F Pulse Rate: 69 Blood Pressure: 110/70 Respiratory Rate: 17 Pulse Ox: 99 Airway Assessment Mouth opens: >3 cm Mallampati Score: II Focused Labs Anesthesia Preop lab: CBC WBC 10.5 K/mm3 (4.4-11.0) 08/18/20 21:20 RBC 4.75 M/mm3 (4.2-5.4) 08/18/20 21:20 Hgb 14.1 g/dL (12.0-15.0) 08/18/20 21:20 Hct 42.3 % (37-47) 08/18/20 21:20 Plt Count 260 K/mm3 (150-450) 08/18/20 21:20 CHEMISTRY Potassium 4.3 mmol/L (3.5-5.1) 07/19/23 09:05 Sodium 138 mmol/L (136-145) 07/19/23 09:05 BUN 12 mg/dL (7-18) 07/19/23 09:05 Creatinine 0.80 mg/dL (0.55-1.02) 07/19/23 09:05 Glucose 140 mg/dL (74-106) H 07/19/23 09:05 POC Glucose 127 mg/dL (70-110) H 02/02/19 11:45 TSH 2.16 uIU/mL (0.358-3.74) 07/19/23 09:05 COAG PT 12.2 SECONDS (11.7-14.9) 10/16/15 14:56 Urine Test Negative Negative 12/27/14 08:30 Pre-Assessment Diagnosis/Proposed Procedure Planned Operative Procedure(s): RIGHT LONG FINGER FLEXOR TENDON REPAIR Anesthesia History Anesthesia History - zinc plate grainer: Anesthesia History - zinc plate grainer Hx Hospitalization No 02/10/24 13:55 Any Problems With Anesthesia No 02/10/24 13:55 Cholinesterase deficiency No 02/10/24 13:55 You/Your Family Experience No 02/10/24 13:55 fever (hyperthermia) with Relationship Recent Exposure to Contagious No 02/11/24 12:13 Disease Does patient have nerve No 02/10/24 13:55 stimulator Patient instructed to have device shut off --Does patient have Pacemaker No 02/11/24 12:13 or ICD? When Was Last Pacemaker Check QUESTION #4 FULL TEXT: You/Your Family Experience fever (hyperthermia) with Anesthesia Last Oral Intake Last Oral intake: Last Oral Intake NPO since 00:00 02/11/24 12:13 Meds taken in AM with sips of water? Meds patient instructed to take am of surgery PONV PONV - zinc plate grainer: PONV - zinc plate grainer Female Yes 02/10/24 13:55 HX of Motion Sickness No 02/10/24 13:55 HX of N/V After Surgery No 02/10/24 13:55 Non-Smoker Yes 02/10/24 13:55 Duration of Surgery greater No 02/10/24 13:55 than 60 minutes Number of Risk Factors 2 02/10/24 13:55 PONV Score Moderate Risk 02/10/24 13:55 Height & Weight Height & Weight: Anesthesia: Height & Weight Height 5 ft 02/11/24 12:13 Weight: 67 kg 02/11/24 12:13 Body Mass Index (BMI) 28.8 02/11/24 12:13 Respiratory Assessment Respiratory Assessment - zinc plate grainer: Respiratory Tract Infection Hx - zinc plate grainer Hx Respiratory Tract Infection No 02/10/24 13:55 STOP Sleep Apnea STOP Sleep Apnea - zinc plate grainer: STOP Sleep Apnea - zinc plate grainer Hx Hypertension No 02/10/24 13:55 Hx Sleep Apnea No 02/10/24 13:55 CPAP No 07/12/20 15:53 BIPAP No 07/12/20 15:53 Do you snore loudly (louder No 02/10/24 13:55 than talking or can be heard Do you often feel tired/ No 02/10/24 13:55 fatigued/ sleepy during daytime? Has anyone observed you stop No 02/10/24 13:55 breathing during sleep? STOP Results Negative 02/10/24 13:55 QUESTION #5 FULL TEXT : Do you snore loudly (louder than talking or can be heard through closed doors)? 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 Specify any problems Hx of Preganancy in last 3 No 02/10/24 13:55 Months Nurse Filling Out Transfusion DSCHRIBER 02/10/24 13:55 & Questions: Date: 02/10/24 02/10/24 13:55 Time: 13:56 02/10/24 13:55 Patient unable to answer at this time (ie. confused, unrespo /Reproduction History /Reproductive History - zinc plate grainer: /Reproductive Hx- zinc plate grainer Hx Now No 02/10/24 13:55 Gestational Age (in weeks): EDC: Hx Hx Para Hx Section SAB No 02/10/24 13:55 Active Medications Active Medications: Current Medications Generic Name Dose Route Start Last Admin Trade Name Freq PRN Reason Stop Dose Admin Cefazolin Sodium 2 gm/ Sodium 110 mls @ 150 mls/hr 02/11/24 13:30 Chloride IV 02/11/24 14:13 PREOP ONE Lactated Ringer's 1,000 mls @ 15 mls/hr 02/11/24 11:45 IV .Q48H MARIALUISA PFSH Medical History Insulin dependent diabetes mellitus Dietary restriction Non-smoker History of trigger finger Overweight (BMI 25.0-29.9) Carpal tunnel syndrome Diabetes type I Home Medications ?Medication ?Instructions ?Recorded ?Last Taken ?Type lancets 28 gauge (FreeStyle #150 ea 11/29/19 Unknown Rx Lancets) True Metrix Glucose Test Strip #150 ea 08/20/21 Unknown Rx (blood sugar diagnostic) insulin lispro 100 unit/mL 100 unit subcut DAILY #90 mL 07/21/23 Unknown Rx subcutaneous solution (Humalog U-100 Insulin) cephalexin 500 mg capsule 500 mg PO Q8H #21 caps 02/10/24 02/11/24 Rx multivitamin 1 tab PO DAILY 02/10/24 02/11/24 History oxycodone 5 mg capsule 5 mg PO BID PRN pain (scale score 02/10/24 02/10/24 Rx 7-10) 7 days #14 caps Allergy/AdvReac Type Severity Reaction Status Date / Time gabapentin (From Neurontin) Allergy Other Verified 02/11/24 12:12 Family History Father Hypertension Arthritis Grandfather Cancer Arthritis Grandmother Cancer Arthritis Brother Diabetes Surgical History Perirectal abscess Hx of hysterectomy r ring a1 jerald release History of carpal tunnel surgery H/O: Social History Smoking Status: Never smoker second hand exposure: No alcohol intake: current alcohol intake frequency: a few times a month substance use type: does not use caffeine: Yes what type of physical activity do you participate in: none frequency: does not exercise seatbelt use: always additional social history: Does not use aspirin or ibuprofen daily Review of Systems (Anesthesia) ROS Narrative System reviewed and no additional complaints, except as documented.
[2024-02-11] MEDS: Lactated Ringers 1,000 ML 15 ML IV (12:45)
[2024-02-11 13:15] LABS: Bedside Glucose 168 mg/dL (74-106)
--- NOTE | 2024-02-11 13:41 | HP.PCM.SX_ITS ---
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 He was at home, not at work this time. She presented to the [facility] emergency department where the emergency room phys josh washed out the wound and placed simple sutures and put her in a dorsal blocking splint. He then called and sent her to my clinic. She was anesthetized with lidocaine in the emergency department. She is reporting sharp severe pain in the affected extremity, worsened by movement is improved with rest and elevation. Patient is a type I diabetic. Per patient report, her most recent A1c was 7.3. She has a pump. She does not smoke She does not have any heart or lung problems. With regards to right upper extremity injuries to the hand, she did have a trigger finger release on her ring finger and a carpal tunnel release (at age 19) for severe triggering and carpal tunnel. CURRENT ENCOUNTER, 11 February 2024: Here today for surgery. Reporting numbness and tingling on the radial side of her right long finger distal to the zone of injury. [facility] Medical History Insulin dependent diabetes mellitus Dietary restriction Non-smoker History of trigger finger Overweight (BMI 25.0-29.9) Carpal tunnel syndrome Diabetes type I Home Medications ?Medication ?Instructions ?Recorded ?Last Taken ?Type lancets 28 gauge (FreeStyle #150 ea 11/29/19 Unknown Rx Lancets) True Metrix Glucose Test Strip #150 ea 08/20/21 Unknown Rx (blood sugar diagnostic) insulin lispro 100 unit/mL 100 unit subcut DAILY #90 mL 07/21/23 Unknown Rx subcutaneous solution (Humalog U-100 Insulin) cephalexin 500 mg capsule 500 mg PO Q8H #21 caps 02/10/24 02/11/24 Rx multivitamin 1 tab PO DAILY 02/10/24 02/11/24 History oxycodone 5 mg capsule 5 mg PO BID PRN pain (scale score 02/10/24 02/10/24 Rx 7-10) 7 days #14 caps Allergy/AdvReac Type Severity Reaction Status Date / Time gabapentin (From Neurontin) Allergy Other Verified 02/11/24 12:12 Family History Father Hypertension Arthritis Grandfather Cancer Arthritis Grandmother Cancer Arthritis Brother Diabetes Surgical History Perirectal abscess Hx of hysterectomy r ring a1 jerald release History of carpal tunnel surgery H/O: Social History Smoking Status: Never smoker second hand exposure: No alcohol intake: current alcohol intake frequency: a few times a month substance use type: does not use caffeine: Yes what type of physical activity do you participate in: none frequency: does not exercise seatbelt use: always additional social history: Does not use aspirin or ibuprofen daily ROS ROS Narrative System reviewed and no additional complaints, except as documented. Vital Signs Vital Signs Vital Signs: 02/11/24 12:13 02/11/24 12:13 02/11/24 12:19 Temperature 98.6 F 98.6 F Temperature Source Temporal Pulse Rate 69 69 Respiratory Rate 17 17 Respiratory Pattern Normal Blood Pressure 110/70 110/70 Blood Pressure Mean 83 Blood Pressure Source Monitor Blood Pressure Position Semi-Fowlers Blood Pressure Location Left Arm Pulse Ox 99 99 Oxygen Delivery Method Room Air Weight Weight: 147 lb 11.355 oz Body Mass Index (BMI) 28.8 Physical Exam Narrative Right upper extremity Well-healed incision over the carpal tunnel and over the A1 jerald of the ring finger. No instability of the DIP joint of the long finger with radial and ulnar stress. Volar and radial 2 cm laceration at about the DIP joint of the long finger. Motor: She is able to hyperextend her DIP joint from a neutral position on the long finger, and her FDS is intact on the long finger (PIP joint flexion with isolation of the long finger), but she is unable to bend the DIP joint of the long finger. Sensory: 3 mm two point discrimination on contralateral long finger, 3 mm two point discrimination on the ulnad side of the right long finger, no two point discrimination at 10 mm on the radial side of the long finger. Vascular: Ulnar digital artery is intact distal to the zone of injury (Doppler exam), and the radial digital artery is open distal to the zone of injury; however, with occlusion of the ulnar digital artery at the base of the finger, the radial digital artery goes silent (I think radial digital artery is out from the laceration). Results Lab / Micro Data Labs: Laboratory Results - last 24 hr 02/11/24 12:07: POC Glucose 168 H Assessment & Plan Assessment/Plan (1) Digital nerve laceration, finger: QUALIFIERS: Qualified Code(s): S64.40XD - Injury of digital nerve of unspecified finger, subsequent encounter PLAN: Radial digital nerve of the long finger Discussed plan for repair with microscope and nerve wrap (prevent axonal escape and increase strength of repair) Patient in agreement (2) Injury of flexor tendon of finger at forearm level: PLAN: Will plan for Zone 1 flexor tendon repair Patient understands planned incisions, possible suture/hardware (risk of fa ilure and infection), possible failure to obtain desired result, possible rupture of the repair, and need for extensive hand therapy and careful post- operative protocol. No change in health since last seen in office yesterday Charges/Coding Procedures Integumentary [id number]: Other Procedure See Report (No charge H&P, surgery today )
[2024-02-11] MEDS: Cefazolin 2 GM in 0.9% Normal Saline (100mL Bag) 100 ML IV (13:50)
--- NOTE | 2024-02-11 14:30 | RAD_ITS ---
EXAM: FL FLUOROSCOPY < 1 HOUR CLINICAL INDICATION: RT LONG FINGER FLEXOR TENDON REPAIR TECHNIQUE: Fluoroscopic images performed in multiple projections. Fluoroscopic guidance was provided by a physician. Fluoroscopic time of 35 seconds in total dose is 0.1514 mGy. COMPARISON: Finger radiographs, 02/10/2024 FINDINGS AND RAD/Finger(s) Min 2 Views IMPRESSION: Single fluoroscopic image submitted for documentation. Refer to the operative note for complete details. Electronically Signed: Tej Mora DO at 21:18 EDT ,
[2024-02-11] MEDS: Bupivacaine 0.25% 30 ML Vial (16:13)
--- NOTE | 2024-02-11 16:34 | PCM.POST.ANE ---
Anesthesia: Postop Eval I Current Vital Signs Temperature: 97.5 F Pulse Rate: 100 Blood Pressure: 136/76 Respiratory Rate: 14 Pulse Ox: 97 Oxygen Delivery Method: Room Air Assessment Airway patent: Yes Spontaneous unlabored respirations: Yes Mental status: Awake and Calm nausea: No Vomiting: No Anesthesia Complication: No Fluid Hydration Crystalloid volume administer (ml): 1,200 Total IV fluid infused: 1,200 Progress Note Anesthesia document: Postop Eval 1 completed: Yes
--- NOTE | 2024-02-11 17:01 | OP.PCM_ITS ---
Operative Report Date of Procedure: 02/11/24 Surgery/Procedure Date: 11 February 2024 Incision/Procedure Start Time: 14:16 Incision Close/Procedure End Time: 16:25 PATIENT: Bonnie Owusu PRE-OPERATIVE DIAGNOSIS: Right Long Finger (RLF) laceration POST-OPERATIVE DIAGNOSIS: Same PROCEDURE PERFORMED: 1) RLF A1 jerald release (CPT: 45240) 2) RLF Zone 1 flexor tendon repair (flexor digitorum profundus (FDP)) with suture anchors (CPT: 56387) 2) RLF Radial digital nerve repair, CPT: 57157 OPERATIVE FINDINGS: * Retracted FDP tendon (retracted into the palm at the level of the A2/A1 pulleys) * Laceration of the FDP tendon was essentially at the insertion (4 mm distal stone) of the FDP into the distal phalanx. Therefore standard suture techniques for tendon repairs were not possible (not enough bite on the distal stump), and the decision was made for suture anchors to be placed. * Lacerated radial digital nerve, clean-cut with healthy edges and no tension. INDICATIONS: Bonnie Urena is a 43-year-old female who was in her kitchen yesterday and sustained a volar right long finger laceration with a kitchen knife that was washed out in the ED and sutured shut and sent to my clinic. On my exam, she had a clear FDP laceration and zone 1. My preoperative exam (without any local obscuring the exam) demonstrated a lacerated radial digital nerve to the long finger. She presents today for repair of the tendon and nerve. I talked to the patient and her extensively about potential use of hardware and biologics (including suture anchors and a nerve wrap) for repair of the tendon and nerve, and they understood the risks of possible infection, failure of the materials, and need for repeat surgery/poor functional result. They wanted to proceed. OPERATIVE DETAILS: Patient was taken back to the operating room where she was administered general anesthesia. The patient was prepped and draped in sterile fashion and a timeout was performed. An Esmarch was used and we subsequently inflated the right upper extremity tourniquet to 200 millimeters mercury. I began the procedure by removing the sutures of the transverse laceration. I then made a mid axial incision proximally along P2 on the side of the digital nerve laceration and raised volar flap above the severed digital nerve. The arterial and venous stumps (lacerated) on this side were cauterized with bipolar. A zigzag [place] type incision was then made distally over the fingertip to better expose the FDP stump. I was able to find the ends of the digital nerve, but I could only find the distal FDP stump at this level (only a 4 mm stump), and I therefore looked for it under the A4 jerald (vented minimally distally, but mostly left intact and just visualized underneath A4). The proximal stump was not found in this location either. I therefore made an incision over the A1 jerald on the palm in an oblique fashion and carefully dissected down bluntly to the A1 jerald where I released the A1 jerald vertically and found a small hematoma and the proximal stump of the tendon. The wound bed was irrigated, and I used a [employer] looped wire tendon passer to guide the tendon under the FDS through camper's chiasm (tendon was pulled midline with ease) back into its twin hills position distally where it was secured temporarily with a Jorge needle. The mini C arm was then brought into the room. I then placed two 1.7 x 5 mm suture anchors parallel to one another in the proximal portion of the distal phalanx and the twin hills portion of the insertion of the FDP, essentially splitting the FDP stump to approximate the proximal and previously retracted FDP tendon. We were satisfied with the lateral and the PA of the suture anchors (extra-articular and in a good location). An augmented Cummings technique with 4 core strands was then used for suturing the tendon with the suture anchors on the radial and ulnar sides the tendon.. The finger was in a neutral position at this point, and I was satisfied with the tension/cascade with the other fingers. The tourniquet was let down for a 5-minute break from tourniquet time, hemostasis was obtained with bipolar electrocautery, and the proximal A1 jerald incision was closed with a 4-0 nylon simple suture. Attention was then turned to the nerve repair. The tourniquet was then re- inflated. The microscope was brought in and a background was placed behind the nerves. There was not any tension and the ends of the nerve appeared healthy. Then two 8-0 nylon interrupted sutures were placed at 180 degrees apart through the epineurium to approximate the nerves. In the setting of the patient also having a flexor tendon injury (need for early passive range of motion exercises), I wanted to reinforce the repair and also prevent axonal escape by placing a nerve protector (Axogen nerve protector), which was opened and hydrated, then wrapped around the nerve repair site once, trimmed to fit, and sutured into place with an 8-0 nylon with the bites through the nerve protector and the epineurium on the proximal and distal edges. At this point the wound was irrigated. The tourniquet was let down and hemostasis was obtained with bipolar electrocautery. The tip of the finger was warm and well perfused from the ulnar vascular bundle. The skin incisions were then closed with 4-0 nylon simple sutures. She was placed in a splint with her hand in appropriate flexion status post flexor tendon injury. The patient tolerated the procedure well and was awakened and taken to the PACU in stable condition. Total tourniquet time, 1 hour 51 minutes , with a 5-minute break at 1 hour. EBL: 5 cc IV fluids: 1200 normal saline Urine output: Not measured (no Matos) Implants: Two suture anchors (Arthrex 1.7 x 5 mm) and Axogen soft tissue matrix nerve protector, Lot [id number], exp Jun 2024, Ref [id number] POST-OPERATIVE PLAN: She will continue her dorsal blocking splint and I will examine her in clinic on Friday, 16 February 2024, at which time she will also meet with our hand therapist, Josefa, to begin early passive range of motion/flexor tendon protocol with a new splint. She will continue her Keflex in the meantime. I talked to her and her about making sure she is elevating the hand and not using it, as well as keeping the splint on/intact and dry.
--- NOTE | 2024-02-12 07:06 | POSTOPAN2_ITS ---
Anesthesia Postop Eval I Sum Postop Eval Completion status Anesthesia document: Postop Eval 1 completed: Yes Anesthesia Postop Eval I Summary Anesthesia Postop Eval I Summary: Anesthesia Postop Eval I: Assessment Summary Airway patent Yes 02/11/24 16:40 HEALTH SAFETY INSTRUCTOR.[email or web address] Spontaneous unlabored Yes 02/11/24 16:40 HEALTH SAFETY INSTRUCTOR.GDOTT respirations Mental status Awake,Calm 02/11/24 16:40 HEALTH SAFETY INSTRUCTOR.GDOTT nausea No 02/11/24 16:40 HEALTH SAFETY INSTRUCTOR.GDOTT Vomiting No 02/11/24 16:40 HEALTH SAFETY INSTRUCTOR.GDOTT Anesthesia Postop Eval I: Fluid Summary Crystalloid volume administer 1,200 02/11/24 16:40 HEALTH SAFETY INSTRUCTOR.GDOTT (ml) Colloids volume administered ( ml) Blood Product volume administered (ml) Total IV fluid infused 1,200 02/11/24 16:40 HEALTH SAFETY INSTRUCTOR.GDOTT Anesthesia Postop Eval I: Summary Notes Anesthesia Complication No 02/11/24 16:40 HEALTH SAFETY INSTRUCTOR.GDOTT Anesthesia Complication Comment: Post-operative progress note Anesthesia: Postop Eval II Evaluation Mental status: Awake Pain Level: 0 nausea: No Vomiting: No
--- NOTE | 2024-02-12 07:06 | PCM.POSTANE2 ---
Anesthesia Postop Eval I Sum Postop Eval Completion status Anesthesia document: Postop Eval 1 completed: Yes Anesthesia Postop Eval I Summary Anesthesia Postop Eval I Summary: Anesthesia Postop Eval I: Assessment Summary Airway patent Yes 02/11/24 16:40 CORPORATE LAW SPECIALIST.GDOTT Spontaneous unlabored Yes 02/11/24 16:40 CORPORATE LAW SPECIALIST.GDOTT respirations Mental status Awake,Calm 02/11/24 16:40 CORPORATE LAW SPECIALIST.GDOTT nausea No 02/11/24 16:40 CORPORATE LAW SPECIALIST.GDOTT Vomiting No 02/11/24 16:40 CORPORATE LAW SPECIALIST.GDOTT Anesthesia Postop Eval I: Fluid Summary Crystalloid volume administer 1,200 02/11/24 16:40 CORPORATE LAW SPECIALIST.GDOTT (ml) Colloids volume administered ( ml) Blood Product volume administered (ml) Total IV fluid infused 1,200 02/11/24 16:40 CORPORATE LAW SPECIALIST.GDOTT Anesthesia Postop Eval I: Summary Notes Anesthesia Complication No 02/11/24 16:40 CORPORATE LAW SPECIALIST.GDOTT Anesthesia Complication Comment: Post-operative progress note Anesthesia: Postop Eval II Evaluation Mental status: Awake Pain Level: 0 nausea: No Vomiting: No
== END 2024-02-11 17:42 | disposition home or self-care (01) ==
LOC: SDC 11:35 → AC 12:54
PROVIDERS: Referring Provider Surgery Plastic and Reconstructive Surgery; Visit Provider Surgery Plastic and Reconstructive Surgery
PROC: (CPT 64831; principal; 2024-02-11 13:15)
DX: S64.492A Injury of digital nerve of right middle finger, initial encounter (principal); E10.9 Type 1 diabetes mellitus without complications; Z79.4 Long term (current) use of insulin; S66.122A Laceration of flexor muscle, fascia and tendon of right middle finger at wrist and hand level, initial encounter; S61.212A Laceration without foreign body of right middle finger without damage to nail, initial encounter; W26.0XXA Contact with knife, initial encounter; Y92.000 Kitchen of unspecified non-institutional (private) residence as the place of occurrence of the external cause; Z96.41 Presence of insulin pump (external) (internal)
CPT/HCPCS: 64831; 26370; 26055; 73140; 76000; 82962; C1713; J7120; J2405

== ENCOUNTER 2024-04-12 10:00 | Outpatient (RCR) | payer BC, SELFPAY ==
--- NOTE | 2024-02-16 18:52 | HP.OTEVAL_ITS ---
Patient's Visit Information Visit Information Visit Information: TAWNYA HAWTHORNE is a 43 year old F, referred to Occupational Therapy by Dr. Marlon Christy MD, with a diagnosis of flexor tendon laceration right hand MF. Date of Evaluation: 02/16/24 Occupational Therapist: Abbey Shearer, ROSE MARY/Bobbi, CHT Subjective Subjective: This 43 year old female was seen for OT eval with dx of right MF laceration. S/p zone 1 zone injury of her flexor digitorum profundus to her long finger on the right hand. Pt states DOS was on 02/11/24. Findings from sx: Retracted FDP tendon (retracted into the palm at the level of the A2/A1 pulleys) Laceration of the FDP tendon was essentially at the insertion (4 mm distal stone) of the FDP into the distal phalanx. Therefore standard suture techniques for tendon repairs were not possible (not enough bite on the distal stump), and the decision was made for suture anchors to be placed. Lacerated radial digital nerve, clean-cut with healthy edges and no tension. pt arrives today for custom dorsal blocking orthosis. 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 pt is hopeful she can return to using both hands as soon as possible. ROM ROM Comments: therapist able to move right MF in PROM to PIP 0/75* MF in PROM to DIP -5/40* pt tolerated PROM from therapist well and demo the ability to move involved digit in PROM. left hand demo full ROM ( noted some OA deformities but otherwise no concerns) Strength Strength Comments: will test later date Sensation Sensation Comments: pt reports tingling of tip of MF at this time states her CTS did increase while in surgical dressing. Quick DASH-Disab of Arm,Shoulder& Hand Quick DASH Score: 80.0000 Goals Goal:100% adherence to protocol: Yes Comment: Follow Zone 1 Modified Liu program Goal:Daily scar massage when approriate: Yes Goal:ROM equal to unaffected hand: Yes Goal:Building Architect/Pinch strength at least 75% of unaffected hand: Yes Comment: will not initiate until week 8-12 based on pts progress Goal:No pain with affected hand use: Yes Goal:Full use of affected hand in daily activities including work: Yes Other Goal: orthosis use: pt will demo by end of 1st session use of dorsal blocking orthosis at all times for 6 weeks. pt will demo understanding of skin care and precautions and agree to return to clinic to allow for therapist to make custom orthosis adj. as needed by end of 1st session. Rehabilitation General Assessment: pt arrives 5 days s/p from a zone 1 FDP repair with anchors. pt demo need for skilled OT services 2-3x week for 8 weeks. pt incision looks good. Pt in need of custom orthosis ( right dorsal blocking orthosis) to provide support and protection newly healing structures. Today therapist fabricated cust om dorsal blocking orthosis placing wrist in slight extension 20* and MCP at 45*flexion allowing PIP and DIPs at 0* ( right MF DIP at sight flexion 5*). therapist ed. pt on use of orthosis at all times- allowing for removal of finger straps to perform her Passive range of motion of all digits MCP, PIP and DIP. Therapist was given verbal instruction to NOT actively bend her fingers with her own muscle use of right hand- pt demo understanding. Therapist also ed. pt on injury and healing. pt demo understand. Pt was given handout den demo understanding and performed ex. well during this session. pt demo understanding and agrees to POC. Rehabilitation Potential: Good Anticipated Interventions Anticipated Interventions: A/AAROM/PROM, Strengthening, Edema Control, Scar Care, Triggerpoint Release, Sensory Retraining, Wound Care, Modalities, Orthoses, Joint Protection/Energy Conservation, Ergonomic Education, Fine Motor Coord/Waldemar, Sensory Stimulation, Education re Diagnosis, Caregiver Training and Home Program Visit Plan Frequency: 2x /Week Duration: 2 Months General Plan: will follow Modified Lyudmila program ( page 210) add in sensory re-training due to nerve laceration will watch closely as pt is DMI TEXT: Thank you for the opportunity to evaluate your patient. For Medicare and Medicare HMO plans, please review the plan of care and approve it. It will need to be FAXED BACK to us at [phone] for Medicare purposes. Please let me know if there are questions or concerns regarding this plan of care. Physician Signature: Date:
--- NOTE | 2024-03-18 09:43 | HP.OTREVAL ---
Re-Evaluation Intro: Dr. Marlon Christy MD, It has been my pleasure to treat TAWNYA HAWTHORNE over the last 9 visits for flexor tendon laceration right hand MF. Please see the progress note below for an update on the occupational therapy plan of care! Subjective Subjective: pt arrives 5 weeks 1 days s/p from zone 1 flexor tendon repair. pt arrives with orthosis on reports compliance with her HEP Objective Objective/Function: AROM prior to therapy PIP - after therapy - ( no aggressive pulling with finger extension) AROM prior to therapy DIP 0/35 after therapy 0 pt demo some hypertrophic scaring does not appear to be limiting her ROM at this time- asked pt to increase scar massage and cont with AROM ex Therapist feels finger AROM will improve when we can transisiton to strengthening in a few weeks. Plan Plan Frequency: 2x /Week Duration: 2 Months Plan: will d/c splint at 6 weeks AROM use of silicone sleeve for scar on finger elastomer for scar on palm cont with PROM and AROM until we can strengthen I feel pts ROM will improve when we can transition to strengthening at later date Goals Goals Patient Goals: Regain Mobility, Return to Work, Use Hand/Wrist/Arm Normally Again and Be More Independent in ADLS Goal:100% adherence to protocol: Yes Goal:Daily scar massage when approriate: Yes Goal:ROM equal to unaffected hand: Yes Goal:Esthetician Permanent Makeup Artist/Pinch strength at least 75% of unaffected hand: Yes Goal:No pain with affected hand use: Yes Goal:Full use of affected hand in daily activities including work: Yes Other Goal: orthosis use: pt will demo by end of 1st session use of dorsal blocking orthosis at all times for 6 weeks. pt will demo understanding of skin care and precautions and agree to return to clinic to allow for therapist to make custom orthosis adj. as needed by end of 1st session. Anticipated Interventions Anticipated Interventions Anticipated Interventions: A/AAROM/PROM, Strengthening, Edema Control, Scar Care, Triggerpoint Release, Sensory Retraining, Wound Care, Modalities, Orthoses, Joint Protection/Energy Conservation, Ergonomic Education, Fine Motor Coord/Waldemar, Sensory Stimulation, Education re Diagnosis, Caregiver Training and Home Program Re-Evaluation Ending Re-evaluation ending: Please do not hesitate to contact me at [phone] by phone or if you have questions or concerns regarding this new plan of care! Sincerely, Abbey Shearer, OTR/L, CHT
--- NOTE | 2024-03-30 09:03 | OTREVAL_ITS ---
Re-Evaluation Intro: Dr. Marlon Christy MD, It has been my pleasure to treat TAWNYA HAWTHORNE over the last 11 visits for flexor tendon laceration right hand MF. Please see the progress note below for an update on the occupational therapy plan of care! Subjective Subjective: pt arrives 6 weeks and 6 days s/p from a flexor tendon repair of right MF zone 1 has some wired pain- feels like she has more feeling then her other fingers- Objective Objective/Function: PIP flexion -5/80* DIP 25* gained to 32* flexion following therapy pt demo with hypertrophic scar- when we can strength feel this will resolve into more consistent end range of motion ROM Plan Plan Frequency: 2x /Week Duration: 2 Months Plan: pt to d/c splint at 6 weeks latha tape to RF for support can not strengthen until week 8 NO Lift No aggressive fisting Goals Goals Patient Goals: Regain Mobility, Return to Work, Use Hand/Wrist/Arm Normally Again and Be More Independent in ADLS Goal:100% adherence to protocol: Yes Goal:Daily scar massage when approriate: Yes Goal:ROM equal to unaffected hand: Yes Goal:Parts Control Clerk/Pinch strength at least 75% of unaffected hand: Yes Goal:No pain with affected hand use: Yes Goal:Full use of affected hand in daily activities including work: Yes Other Goal: orthosis use: pt will demo by end of 1st session use of dorsal blocking orthosis at all times for 6 weeks. pt will demo understanding of skin care and precautions and agree [facility] [place] [facility] allow for therapist to make custom orthosis adj. as needed by end of 1st session. Anticipated Interventions Anticipated Interventions Anticipated Interventions: A/AAROM/PROM, Strengthening, Edema Control, Scar Care, Triggerpoint Release, Sensory Retraining, Wound Care, Modalities, Orthoses, Joint Protection/Energy Conservation, Ergonomic Education, Fine Motor Coord/Waldemar, Sensory Stimulation, Education re Diagnosis, Caregiver Training and Home Program Re-Evaluation Ending Re-evaluation ending: Please do not hesitate to contact me at [phone] by phone or if you have questions or concerns regarding this new plan of care! Sincerely, Abbey Shearer, OTR/L, CHT
--- NOTE | 2024-07-29 10:19 | HP.OT.NRP ---
Patient Information Patient Information: TAWNYA HAWTHORNE was seen in my office for initial evaluation on 02/16/24. The following Plan of Care was established for this patient: POC Established Initial Frequency: 2x /Week Initial Duration: 2 Months Plan: can not strengthen until week 8 NO Lift No aggressive fisting pt will work on HEP until week s12 Anticipated Interventions Anticipated Interventions: A/AAROM/PROM, Strengthening, Edema Control, Scar Care, Triggerpoint Release, Sensory Retraining, Wound Care, Modalities, Orthoses, Joint Protection/Energy Conservation, Ergonomic Education, Fine Motor Coord/Waldemar, Sensory Stimulation, Education re Diagnosis, Caregiver Training and Home Program Last Seen Last Seen: This patient was last seen in our office 04/12/24. Pertinent comments regarding their Occupational therapy will appear below: pt was seen for 13 OT sessions following Flexor tendon repair- pt progress well in tx. No further apts have been scheduled and due to time lapse in services pt is d/c at this time. At this point I will be discontinuing this patient from occupational therapy. I would be happy to see this patient again in the future if found appropriate by the physician. Thank you! Abbey Shearer, OTR/L, CHT
== END 2024-04-12 19:00 | disposition home or self-care (01) ==
LOC: OT 10:00
PROVIDERS: Referring Provider Surgery Plastic and Reconstructive Surgery; Visit Provider Surgery Plastic and Reconstructive Surgery
DX: S56.109 Unspecified injury of flexor muscle, fascia and tendon of unspecified finger at forearm level (principal)
CPT/HCPCS: 97035; 97110; 97140; 97166; 97530; 97760

== ENCOUNTER → 2024-07-20 | Outpatient (CLI) | payer BC, SELFPAY ==
--- NOTE | 2024-07-20 10:24 | NEURO ---
NCS and/or EMG Patient Report Ordering Doctor: Marlon Christy DATE OF SERVICE: 07/20/24 Clinical Summary: 44 year old female patient with symptoms of numbness and tingling in both hands. Nerve Conduction Studies Summary: Nerve conduction studies of the bilateral upper extremities was performed. The median-D2 SNAP distal latency was prolonged bilaterally with reduced amplitude on the right side. The right median-APB CMAP distal latency was prolonged with reduced amplitude. The median motor conduction velocity was reduced in the forearm segment bilaterally. Needle Examination Summary: Needle examination of select muscles of the bilateral upper extremities showed a higher proportion of motor unit action potentials with reduced recruitment, increased amplitude, increased duration, and polyphasia in the right abductor pollicis brevis muscle. Impression: This is an abnormal study There is electrodiagnostic evidence of the following - 1) Severe, right median mononeuropathy at the wrist (carpal tunnel syndrome), with secondary motor fiber axonal loss 2) Mild, left median mononeuropathy at the wrist (carpal tunnel syndrome), with sensory fiber demyelination Comment: In comparison to the EMG/NCS performed previously on 04/24/2022, there has been interval worsening of the right median nerve latencies and amplitudes while the left median nerve conductions are not significantly changed. Multi Select Codes Neurology Neurology Interp Codes: 08053-95 Musc test done w/n test comp (interp) (2) and 84933-78 Nrv cndj test 11-12 studies (interp)
== END | disposition home or self-care (01) ==
LOC: PSN 08:24
PROVIDERS: Referring Provider Surgery Plastic and Reconstructive Surgery; Visit Provider Surgery Plastic and Reconstructive Surgery
DX: G56.00 Carpal tunnel syndrome, unspecified upper limb (principal)
CPT/HCPCS: 95886; 95912